=== PATIENT | female | born 2000 | race African-American/Black ===

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

== ENCOUNTER 2019-11-09 20:18 | Emergency (ER) | payer OTHER ==
[2019-11-09 20:24] VITALS: BP 116/63
--- NOTE | 2019-11-09 20:41 | ED Physician Documentation ---
PD HPI FEMALE - Stated complaint Stated Complaint: ABD PX,6WEEKS PREG - Chief complaint Chief Complaint: Abd Pain - History obtained from History obtained from: Patient - History of Present Illness Timing - onset: Other (This is a G1 at approximately 6 weeks gestation. She complains of 3 days of vaginal discharge compared to prior episode of bacterial vaginosis. She also has some left-sided abdominal cramping but she has had that throughout the . No bleeding.) Review of Systems Constitutional: reports: Reviewed and negative Cardiac: reports: Reviewed and negative Respiratory: reports: Dyspnea PD PAST MEDICAL HISTORY - Past Medical History Cardiovascular: None Respiratory: None Neuro: None Endocrine/Autoimmune: None GI: None MERCHANDISE DIRECTOR: None : None HEENT: None Psych: None Musculoskeletal: None Derm: None - Past Surgical History Past Surgical History: No - Present Medications Home Medications: Ambulatory Orders Medication Instructions Recorded Confirmed metroNIDAZOLE [Flagyl] 500 mg PO BID #14 tablet 11/09/19 - Allergies Allergies/Adverse Reactions: Allergies Allergy/AdvReac Type Severity Reaction Status Date / Time No Known Drug Allergies Allergy Verified 12/04/18 21:08 - Social History Does the pt smoke?: No Smoking Status: Never smoker Does the pt drink ETOH?: No Does the pt have substance abuse?: No - Immunizations Immunizations are current?: Yes - POLST Patient has POLST: No PD ED PE NORMAL - Vitals Vital signs reviewed: Yes - General General: Alert and oriented X 3, No acute distress - Abdomen Abdomen: Soft, Non tender - Female Female : Other (Bedside ultrasound demonstrates single live intrauterine with a heart rate of 128) - Neuro Neuro: Alert and oriented X 3, Normal speech Results - Vitals Vitals: Vital Signs - 24 hr 11/09/19 20:21 Temperature 36.8 C Heart Rate 78 Respiratory 18 Rate Blood Pressure 116/63 O2 Saturation 99 Oxygen O2 Source Room air - Labs Labs: Microbiology 11/09/19 20:40 Wet Prep - Final Genital - Vaginal PD MEDICAL DECISION MAKING - ED course ED course: 19-year-old woman with 6-week , G1. Sx C/W BV. Tx w flagyl Departure - Departure Disposition: 01 Home, Self Care Clinical Impression: Bacterial vaginosis Qualifiers: Weeks of gestation: less than 8 weeks Qualified Code(s): Z3A.01 - Less than 8 weeks gestation of Condition: Good Record reviewed to determine appropriate education?: Yes Instructions: ED Vaginosis Bacterial Prescriptions: metroNIDAZOLE [Flagyl] 500 mg PO BID #14 tablet Comments: [place], return for new or worsening symptoms. Discharge Date/Time: 11/09/19 21:14
[2019-11-09] MEDS ORDERED: metroNIDAZOLE 250 MG TABLET PO STA (21:04)
[2019-11-09 22:37] LABS: CANDIDA GROUP DNA POSITIVE (NEGATIVE); CANDIDA KRUSEI DNA NEGATIVE (NEGATIVE); TRICHOMONAS VAGINALIS DNA NEGATIVE (NEGATIVE)
[2019-11-09 23:25] LABS: TRICHOMONAS VAGINALIS DNA NEGATIVE (NEGATIVE)
== END 2019-11-09 21:14 | disposition home or self-care (01) ==
LOC: ED 20:18
DX: O23.591 Infection of other part of genital tract in pregnancy, first trimester (principal); B96.89 Other specified bacterial agents as the cause of diseases classified elsewhere; Z3A.01 Less than 8 weeks gestation of pregnancy
CPT/HCPCS: 87210; 87481; 87491; 87591; 87661; 87801; 99283; A9270

== ENCOUNTER 2020-04-01 19:06 | Outpatient (CLI) | payer OTHER | END 2020-04-01 19:07 | disposition critical access hospital (66) | LOC: EMS 19:06 | PROVIDERS: ATTEND Surgery | DX: O26.899 Other specified pregnancy related conditions, unspecified trimester (principal) | CPT/HCPCS: A0425; A0427 ==

== ENCOUNTER 2020-04-01 19:27 | Inpatient (IN) | payer OTHER ==
[~2020-04-01 19:27] MED LIST: HYDROmorphone 1 MG/ML CARPUJECT IVP ONE
[2020-04-01] MEDS ORDERED: BETAMETHASONE 30 MG/5 ML VIAL IM ONE (19:30)
[2020-04-01] MEDS: MAGNESIUM SULFATE 2 GRAM 2 GM/50 ML BAG IV SCH ×2 (19:35→20:13)
[2020-04-01] MEDS ORDERED: MAGNESIUM SULFATE 2 GRAM 4 GM/100 ML BAG IV ONE (19:38)
[2020-04-01] MEDS ORDERED: LACTATED RINGERS 1,000 ML IV ONE ×3 (19:38→21:40)
[2020-04-01] MEDS ORDERED: BETAMETHASONE 30 MG/5 ML VIAL ONE (19:44)
[2020-04-01] MEDS ORDERED: MAGNESIUM SULFATE 2 GRAM 2 GM/50 ML BAG IV ONE ×2 (19:45→20:14)
[2020-04-01] MEDS ORDERED: CARBOPROST TROMETHAMINE 250 MCG/ML AMP IM PRN (19:59)
[2020-04-01] MEDS ORDERED: miSOPROStoL 200 MCG TABLET BC PRN (19:59)
[2020-04-01] MEDS ORDERED: OXYTOCIN 10 UNIT/ML VIAL IM PRN (19:59)
[2020-04-01] MEDS ORDERED: SODIUM CHLORIDE FLUSH 0.9% 10 ML SYRINGE IVP PRN ×2 (19:59→21:41)
[2020-04-01] MEDS ORDERED: METHYLERGONOVINE 0.2 MG/ML VIAL IM PRN (19:59)
[2020-04-01] MEDS ORDERED: OXYTOCIN/SODIUM CHLORIDE 500 ML IV PRN ×2 (19:59)
[2020-04-01] MEDS ORDERED: LIDOCAINE-MPF 1% 30 ML VIAL ID PRN (19:59)
[2020-04-01] MEDS ORDERED: TRANEXAMIC ACID 1,000 MG in SODIUM CHLORIDE 0.9% 100ML 100 ML IV PRN (19:59)
[2020-04-01] MEDS ORDERED: LACTATED RINGERS 1,000 ML IV SCH ×2 (20:00→22:00)
[2020-04-01] MEDS ORDERED: CITRIC ACID/SODIUM CITRATE 15 ML UDC PO ONE ×2 (20:00→20:21)
[2020-04-01] MEDS ORDERED: OXYTOCIN/SODIUM CHLORIDE 500 ML IV ONE (20:01)
[2020-04-01 20:18] LABS: BASOPHILS % (AUTO) 0.3 %; EOSINOPHILS % (AUTO) 0.3 %; HGB - HEMOGLOBIN 8.6 g/dL (12.0-16.0); LYMPHOCYTES % (AUTO) 10.2 %; MEAN CORPUSCULAR HEMOGLOBIN 30.5 pg (27.0-31.0); MEAN CORPUSCULAR VOLUME 92.6 fL (81.0-99.0); MEAN PLATELET VOLUME 11.1 fL (7.9-10.8); MONOCYTES % (AUTO) 8.9 %; NEUTROPHILS % (AUTO) 76.8 %; PLT - PLATELET COUNT 286 10^3/uL (130-450); RED BLOOD COUNT 2.82 10^6/uL (4.20-5.40); RED CELL DISTRIBUTION WIDTH 14.5 % (12.0-15.0); WHITE BLOOD COUNT 20.1 x10^3/uL (4.8-10.8)
[2020-04-01 20:20] LABS: ABNORMAL LYMPHS % (MANUAL) 0 %
[2020-04-01] MEDS ORDERED: CLINDAMYCIN 900 MG/50 ML 50 ML IV ONE (20:24)
[2020-04-01] MEDS ORDERED: ONDANSETRON 4 MG/2 ML VIAL IVP ONE (20:25)
[2020-04-01] MEDS ORDERED: KETOROLAC 30 MG/ML VIAL IVP ONE (20:25)
[2020-04-01] MEDS ORDERED: METHYLERGONOVINE 0.2 MG/ML VIAL IM ONE (20:25)
[2020-04-01] MEDS ORDERED: HYDROmorphone 1 MG/ML CARPUJECT IVP ONE (20:25)
[2020-04-01] MEDS ORDERED: ACETAMINOPHEN 1,000 MG/100 ML 100 ML IV ONE (20:25)
[2020-04-01] MEDS ORDERED: fentaNYL 100 MCG/2 ML VIAL IVP ONE (20:25)
[2020-04-01] MEDS ORDERED: ePHEDrine 50 MG/ML VIAL IVP ONE (20:25)
[2020-04-01 20:27] LABS: ALBUMIN 3.4 g/dL (3.2-5.5); ALBUMIN/GLOBULIN RATIO 0.9 (1.0-2.2); BILIRUBIN,TOTAL 0.2 mg/dL (0.2-1.0); CALCIUM 9.5 mg/dL (8.5-10.3); CREATININE 0.6 mg/dL (0.4-1.0); TOTAL PROTEIN 7.3 g/dL (6.7-8.2)
[2020-04-01 20:32] LABS: BAND NEUTROPHILS % (MANUAL) 1 %; DIFFERENTIAL COMMENT MANUAL DIFFERENTIAL; LYMPHOCYTES # (MANUAL) 0.4 10^3/uL (1.5-3.5); LYMPHOCYTES % (MANUAL) 2 %; PLATELET ESTIMATE, MANUAL NORMAL (130-450,000) (NORMAL); PLATELET MORPHOLOGY NORMAL APPEARANCE (NORMAL); RBC MORPHOLOGY (MULTIPLE) NORMAL APPEARANCE (NORMAL)
[2020-04-01] MEDS ORDERED: METHYLERGONOVINE 0.2 MG/ML VIAL ONE (20:32)
[2020-04-01] MEDS ORDERED: CARBOPROST TROMETHAMINE 250 MCG/ML AMP IM ONE (20:32)
[2020-04-01] MEDS ORDERED: ONDANSETRON 4 MG/2 ML VIAL IVP PRN ×2 (21:41→21:59)
[2020-04-01] MEDS ORDERED: FERRIC GLUCONATE 125 MG in SODIUM CHLORIDE 0.9% 100ML 100 ML IV ONE (21:41)
[2020-04-01] MEDS ORDERED: HYDROmorphone PCA 20MG/100ML IV PRN (21:50)
--- NOTE | 2020-04-01 21:57 | ANESTHESIA POST OP EVALUATION ---
Anesthesia Post Eval - Post Anesthesia Eval Vitals: Last Vital Signs Temp 36.8 C 04/01/20 21:35 Pulse 112 H 04/01/20 21:49 Resp 12 04/01/20 21:49 BP 135/88 H 04/01/20 21:49 Pulse Ox 100 04/01/20 21:49 CV Function Including HR & BP: positive: Stable Pain Control: positive: Satisfactory Nausea & Vomiting: positive: Negative Mental Status: positive: Patient Participates Respiratory Status: Airway Patent Hydration Status: Satisfactory Anesthesia Complications: positive: None
--- NOTE | 2020-04-01 21:58 | CONSULTATION NOTE ---
Consultation Report: written consent not obtained for anesthesia, and preanesthesia eval not one due to urgency of case. Patient in room upon my arrival. Verbal consent for SAB given by patient.
[2020-04-01] MEDS ORDERED: MORPHINE 2 MG/ML CARPUJECT IVP PRN (21:59)
[2020-04-01] MEDS ORDERED: ePHEDrine 50 MG/ML VIAL IVP PRN (21:59)
[2020-04-01] MEDS ORDERED: METOCLOPRAMIDE 10 MG/2 ML VIAL IVP PRN (21:59)
[2020-04-01] MEDS ORDERED: fentaNYL 100 MCG/2 ML VIAL IVP PRN (21:59)
[2020-04-01] MEDS ORDERED: ATROPINE ABBOJECT 1 MG/10 ML SYRINGE IVP PRN (21:59)
[2020-04-01] MEDS ORDERED: HYDROmorphone 0.5 MG/0.5 ML SYRINGE IVP PRN (21:59)
[2020-04-01] MEDS ORDERED: NALOXONE 0.4 MG/ML VIAL IVP PRN (21:59)
--- NOTE | 2020-04-01 21:59 | OPERATIVE REPORT ---
Operative Report - General Admit Date: 04/01/20 Planned Procedure: EPLTC/S Pre-Op Diagnosis: 27 week, breech, houre glassing membrains, complete, iminant delivery Procedure Performed: EPLTC/S Post Op Diagnosis: Footling breech - Procedure Note Primary Surgeon: Dean Hollis MD Secondary Surgeon: Kirsten Abel Anesthesia Provider: Marilia Catalan CRNA Anesthesia Technique: Spinal Pathology: Placenta IV Fluids (mL): 1,300 Estimated Blood Loss (mL): 800 Urine Output (mL): 30 Indications: iminsnt delivery
[2020-04-01] MEDS: LACTATED RINGERS 1,000 ML IV SCH (23:00)
[2020-04-01] MEDS: oxyCODONE 5 MG TABLET PO PRN (23:16)
[2020-04-02] MEDS ORDERED: HYDROmorphone 2 MG/ML VIAL ONE (00:59)
[2020-04-02] MEDS ORDERED: SODIUM CHLORIDE FLUSH 0.9% 10 ML SYRINGE IVP SCH ×2 (01:00)
--- NOTE | 2020-04-02 02:04 | PREOP HISTORY & PHYSICAL ---
DATE OF SERVICE: 04/01/2020 Physician: Dean Hollis MD IDENTIFICATION: Patient is a 19-year-old 1, para 0, whose EDC was 29 June, by history given by patient. This makes her 27 weeks and 1 day. CHIEF COMPLAINT: Contractions. HISTORY OF PRESENT ILLNESS: Patient states that at roughly 1800 this evening, she developed contractions, which became progressively worse with time. She presented to our OB unit via ambulance at roughly 1930. At that point, a pelvic examination was performed and the membranes were hourglassing to within +1 of the cervix. The cervix was nonpalpable at that time. She had been recently discharged from the [facility] a week ago with a diagnosis of an incompetent cervix. She had been sent home after being monitored extensively. She received 2 shots of betamethasone during that time. She denies any precipitating causes. She denies any infections. PAST MEDICAL HISTORY: Positive for acid reflux. PAST SURGICAL HISTORY: Tonsils and adenoidectomy, back lipoma removed, wisdom teeth. ALLERGIES: PENICILLIN. CURRENT MEDICATIONS 1. Sertraline 50 mg daily. 2. Aspirin. 3. Famotidine. 4. Metoclopramide. 5. Propylene glycol. 6. Senna. HABITS: She denies the use of alcohol, tobacco, or street or addictive drugs. SOCIAL HISTORY: Patient is active [employer]. She is currently engaged to be . PHYSICAL EXAMINATION GENERAL: Patient is well-developed, well-nourished, black female. She is slight in appearance. VITAL SIGNS: On admission show a blood pressure of 135/88, respirations 12, heart rate is 112. HEENT: Pupils are equal and round. Extraocular muscles are intact. HEART: Regular rate and rhythm without murmurs. LUNGS: Lung joyner are clear without rales or wheezes. ABDOMEN: Palpated as appropriate size. A transabdominal ultrasound revealed the infant to be breech in presentation. There was adequate fluid around the infant at this time. PELVIC: Examination showed a bulging bag, which was hourglassing out to the +2. The cervix was not palpable, the presenting part appears to be the foot. Her DTRs were plus. IMPRESSION: A 19-year-old primigravida at 27 weeks 1 day, hourglassing membranes, active labor, footling breech. PLAN: We will start magnesium sulfate to try and stop her contractions. If this is not successful, because of the breech presentation, we will need to proceed on to section. At this particular time, I do not believe she is transportable. TD: 04/01/2020 22:15 MTDJayden
[2020-04-02] MEDS: KETOROLAC 30 MG/ML VIAL IVP SCH ×4 (02:52→21:22)
[2020-04-02] MEDS: ACETAMINOPHEN 500 MG TABLET PO SCH ×3 (04:20→20:41)
[2020-04-02 05:52] LABS: BASOPHILS % (AUTO) 0.4 %; EOSINOPHILS % (AUTO) 0.5 %; HGB - HEMOGLOBIN 7.5 g/dL (12.0-16.0); LYMPHOCYTES % (AUTO) 4.4 %; MEAN CORPUSCULAR HEMOGLOBIN 30.1 pg (27.0-31.0); MEAN CORPUSCULAR HGB CONC 32.1 g/dL (32.0-36.0); MEAN PLATELET VOLUME 11.2 fL (7.9-10.8); MONOCYTES % (AUTO) 6.2 %; NEUTROPHILS % (AUTO) 86.4 %; PLT - PLATELET COUNT 265 10^3/uL (130-450); RED BLOOD COUNT 2.49 10^6/uL (4.20-5.40); RED CELL DISTRIBUTION WIDTH 14.6 % (12.0-15.0); WHITE BLOOD COUNT 21.2 x10^3/uL (4.8-10.8)
[2020-04-02 05:54] LABS: ABNORMAL LYMPHS % (MANUAL) 0 %
--- NOTE | 2020-04-02 06:02 | OPERATIVE REPORT ---
DATE OF SERVICE: 04/01/2020 Physician: Dean Hollis MD PREOPERATIVE DIAGNOSES 1. 27 weeks 2 days. 2. Footling breech presentation. 3. Hourglassing membranes. 3. Active labor. 4. Imminent delivery. POSTOPERATIVE DIAGNOSES 1. 27 weeks 2 days. 2. Footling breech presentation. 3. Hourglassing membranes. 3. Active labor. 4. Imminent delivery. PROCEDURE PLANNED: Emergency primary low transverse section. PROCEDURE PERFORMED: Emergency primary low transverse section, footling breech. SURGEON: Dean Hollis MD. PROJECT MANAGEMENT INTERN: Tanya Pena CNM. ANESTHESIA: Spinal with IV augmentation, Kerry Catalan CRNA. IV FLUIDS: 1300 mL ESTIMATED BLOOD LOSS: 800 mL URINE OUTPUT: 300 mL MATERIALS TO PATHOLOGY: Placenta. FINDINGS: Live female , footling breech presentation, clear amniotic fluid. PROCEDURE: Following adequate spinal anesthesia, patient was placed in the supine position with a roll under the right hip. Pereira catheter was then placed under sterile conditions and her abdomen was prepped and draped in the usual fashion. Following a timeout, the procedure was commenced. A Pfannenstiel incision was carried down through subcutaneous tissue to the fascia. The fascia was incised transversely; then using both blunt and sharp dissection, it was freed from the rectus abdominis and pyramidalis. The rectus was split along the midline high. Care was taken to avoid any injury to bowel or bladder. At this point, the incision was carried superiorly and inferiorly. Bladder retractor was placed and then a bladder flap was developed using both blunt and sharp dissection. A low transverse uterine incision was made. This appeared to be somewhat higher in the muscular than initially attended. This was carried down to the amniotic membranes. The membranes were ruptured. Clear amniotic fluid was encountered. The 's right foot was brought down to the incision. Initially the hand also presented itself. This had to be pushed back and the left foot was eventually obtained. The infant was coming out abdomen first, so this had to be rolled to back first. The arms were swept, and then the head was delivered following pressure as well as a chin lift. The cord was doubly clamped, divided, and the infant was handed to the copy and print associate who was standing by. The infant was vigorous. A cord blood sample was obtained and sent for evaluation. At this point, the placenta was manually removed. This was sent for pathologic evaluation. The uterus was exteriorized, wrapped in a moist lap and cleansed in the internal portion with a dry lap. There was no evidence of retained membranes or placental tissue. The incision was closed utilizing 0 Vicryl in a running locking suture with an imbricating layer of 0 Vicryl. The incision appeared to be hemostatic at this point. The uterus was tipped forward and the cul-de-sac was irrigated clear of any clot. There was copious amounts of amniotic fluid encountered during the case. The estimated blood loss was roughly 800 mL. The uterus was tipped back in the abdominal cavity. The gutters were likewise irrigated clear of clot. The incision itself was once again inspected. No bleeding was noted. The peritoneum was closed as well as the rectus. This was irrigated. No bleeding was noted, so the fascia was closed utilizing looped PDS in a running suture. The incision itself was closed using 4-0 Monocryl and then Mastisol and Steri-Strips were applied. The uterus was expressed of all clots. During this procedure, Tanya Pena's assistance was necessary as well as important. She aided in retraction as well as delivering of the . TD: 04/01/2020 22:10 CHLOE
[2020-04-02 06:15] LABS: BAND NEUTROPHILS % (MANUAL) 31 %; DIFFERENTIAL COMMENT MANUAL DIFFERENTIAL; LYMPHOCYTES # (MANUAL) 0.6 10^3/uL (1.5-3.5); LYMPHOCYTES % (MANUAL) 3 %; MONOCYTES # (MANUAL) 0.6 10^3/uL (0.0-1.0); PLATELET ESTIMATE, MANUAL NORMAL (130-450,000) (NORMAL); RBC MORPHOLOGY (MULTIPLE) NORMAL APPEARANCE (NORMAL)
[2020-04-02] MEDS: oxyCODONE 5 MG TABLET PO PRN ×4 (06:17→21:11)
[2020-04-02] MEDS: SIMETHICONE CHEW 80 MG TABLET PO SCH ×2 (06:17→16:48)
[2020-04-02] MEDS ORDERED: FERRIC GLUCONATE 125 MG in SODIUM CHLORIDE 0.9% 100ML 100 ML IV ONE (09:00)
[2020-04-02] MEDS: ceFAZolin 2 GM in SODIUM CHLORIDE 0.9% 100ML 100 ML IV SCH ×2 (09:22→17:13)
[2020-04-02] MEDS ORDERED: IRON DEXTRAN 1,000 MG in SODIUM CHLORIDE 0.9% 250 ML IV ONE (10:30)
[2020-04-02 12:39] LABS: BASOPHILS % (AUTO) 0.5 %; HGB - HEMOGLOBIN 7.3 g/dL (12.0-16.0); LYMPHOCYTES % (AUTO) 3.9 %; MEAN CORPUSCULAR HEMOGLOBIN 30.5 pg (27.0-31.0); MEAN CORPUSCULAR HGB CONC 32.7 g/dL (32.0-36.0); MEAN CORPUSCULAR VOLUME 93.3 fL (81.0-99.0); MONOCYTES % (AUTO) 7.3 %; NEUTROPHILS % (AUTO) 85.5 %; PLT - PLATELET COUNT 269 10^3/uL (130-450); RED BLOOD COUNT 2.39 10^6/uL (4.20-5.40); RED CELL DISTRIBUTION WIDTH 14.6 % (12.0-15.0); WHITE BLOOD COUNT 22.3 x10^3/uL (4.8-10.8)
[2020-04-02 12:42] LABS: ABNORMAL LYMPHS % (MANUAL) 0 %
[2020-04-02 13:05] LABS: BAND NEUTROPHILS % (MANUAL) 1 %; LYMPHOCYTES # (MANUAL) 0.4 10^3/uL (1.5-3.5); LYMPHOCYTES % (MANUAL) 2 %; MONOCYTES # (MANUAL) 0.4 10^3/uL (0.0-1.0); PLATELET ESTIMATE, MANUAL NORMAL (130-450,000) (NORMAL); PLATELET MORPHOLOGY NORMAL APPEARANCE (NORMAL); RBC MORPHOLOGY (MULTIPLE) NORMAL APPEARANCE (NORMAL)
[2020-04-02 13:06] LABS: DIFFERENTIAL COMMENT MANUAL DIFFERENTIAL
--- NOTE | 2020-04-02 17:32 | PROVIDER PROGRESS NOTE ---
Subjective - General Admit Date: 04/01/20 Procedure Date: 04/01/20 Post Op Days: 1 Procedure Performed: EPLTC/S - Review of Systems Wound/Incisions: positive: Drainage (drainage on the dressing) General: positive: No symptoms (pain control issue. no flatus.) Objective - Patient Data Reviewed Vital Signs: Yes Vital Signs: Vital Signs x48h Temp Pulse Resp BP Pulse Ox 04/02/20 17:17 18 04/02/20 16:57 36.6 C 87 18 104/55 L 99 04/02/20 12:00 36.7 C 97 18 95/55 L 99 04/02/20 10:00 110/61 Weight: Weight 03/31/20 04/01/20 04/02/20 23:59 23:59 23:59 Weight (kg) 69.4 kg Intake & Output: Intake and Output Totals x24h 03/31/20 04/01/20 04/02/20 23:59 23:59 23:59 Intake Total 12.5 100 Output Total 2520 Balance 12.5 -2420 - Lab Results Lab Results: 04/02/20 12:30 04/01/20 20:08 Other Lab Results: Lab Results x24hrs 04/02/20 04/02/20 04/01/20 Range/Units 12:30 05:45 22:02 WBC 22.3 H 21.2 H (4.8-10.8) x10^3/uL RBC 2.39 L 2.49 L (4.20-5.40) 10^6/uL Hgb 7.3 L 7.5 L (12.0-16.0) g/dL Hct 22.3 L 23.4 L (37.0-47.0) % MCV 93.3 94.0 (81.0-99.0) fL MCH 30.5 30.1 (27.0-31.0) pg MCHC 32.7 32.1 (32.0-36.0) g/dL RDW 14.6 14.6 (12.0-15.0) % Plt Count 269 265 (130-450) 10^3/uL MPV 11.0 H 11.2 H (7.9-10.8) fL Neut # (Auto) Not Reportable Not Reportable Lymph # (Auto) Not Reportable Not Reportable [place] # (Auto) Not Reportable Not Reportable Eos # (Auto) Not Reportable Not Reportable Baso # (Auto) Not Reportable Not Reportable Absolute Nucleated RBC Not Reportable Not Reportable Total Counted 100 100 Band Neuts % (Manual) 1 31 H (0 - 10) % Abnorm Lymph % (Manual) 0 0 % Nucleated RBC % Not Reportable Not Reportable Neutrophils # (Manual) 21.4 H 19.9 H (1.5-6.6) 10^3/uL Lymphocytes # (Manual) 0.4 L 0.6 L (1.5-3.5) 10^3/uL Monocytes # (Manual) 0.4 0.6 (0.0-1.0) 10^3/uL Eosinophils # (Manual) 0.0 0.0 (0-0.7) 10^3/uL Basophils # (Manual) 0.0 0.0 (0-0.1) 10^3/uL Differential Comment MANUAL DIFFERENTIAL MANUAL DIFFERENTIAL Manual Slide Review Indicated WBC Morphology NORMAL APPEARANCE (NORMAL) Platelet Estimate NORMAL (130-450,000) NORMAL (130-450,000) (NORMAL) Platelet Morphology NORMAL APPEARANCE (NORMAL) RBC Morph Micro Appear NORMAL APPEARANCE NORMAL APPEARANCE (NORMAL) Sodium (135-145) mmol/L Potassium (3.5-5.0) mmol/L Chloride (101-111) mmol/L Carbon Dioxide (21-32) mmol/L Anion Gap (6-13) BUN (6-20) mg/dL Creatinine (0.4-1.0) mg/dL Estimated GFR (MDRD) (>89) Glucose (70-100) mg/dL Calcium (8.5-10.3) mg/dL Total Bilirubin (0.2-1.0) mg/dL AST (10-42) IU/L ALT (10-60) IU/L Alkaline Phosphatase (42-121) IU/L Total Protein (6.7-8.2) g/dL Albumin (3.2-5.5) g/dL Globulin (2.1-4.2) g/dL Albumin/Globulin Ratio (1.0-2.2) Blood Type Blood Type Recheck O POSITIVE Antibody Screen Crossmatch IS Only 04/01/20 04/01/20 04/01/20 Range/Units 20:08 20:08 20:08 WBC 20.1 H (4.8-10.8) x10^3/uL RBC 2.82 L (4.20-5.40) 10^6/uL Hgb 8.6 L (12.0-16.0) g/dL Hct 26.1 L (37.0-47.0) % MCV 92.6 (81.0-99.0) fL MCH 30.5 (27.0-31.0) pg MCHC 33.0 (32.0-36.0) g/dL RDW 14.5 (12.0-15.0) % Plt Count 286 (130-450) 10^3/uL MPV 11.1 H (7.9-10.8) fL Neut # (Auto) Not Reportable Lymph # (Auto) Not Reportable [place] # (Auto) Not Reportable Eos # (Auto) Not Reportable Baso # (Auto) Not Reportable Absolute Nucleated RBC Not Reportable Total Counted 100 Band Neuts % (Manual) 1 (0 - 10) % Abnorm Lymph % (Manual) 0 % Nucleated RBC % Not Reportable Neutrophils # (Manual) 17.7 H (1.5-6.6) 10^3/uL Lymphocytes # (Manual) 0.4 L (1.5-3.5) 10^3/uL Monocytes # (Manual) 2.0 H (0.0-1.0) 10^3/uL Eosinophils # (Manual) 0.0 (0-0.7) 10^3/uL Basophils # (Manual) 0.0 (0-0.1) 10^3/uL Differential Comment MANUAL DIFFERENTIAL Manual Slide Review Indicated WBC Morphology NORMAL APPEARANCE (NORMAL) Platelet Estimate NORMAL (130-450,000) (NORMAL) Platelet Morphology NORMAL APPEARANCE (NORMAL) RBC Morph Micro Appear NORMAL APPEARANCE (NORMAL) Sodium 133 L (135-145) mmol/L Potassium 3.5 (3.5-5.0) mmol/L Chloride 100 L (101-111) mmol/L Carbon Dioxide 23 (21-32) mmol/L Anion Gap 10.0 (6-13) BUN 6 (6-20) mg/dL Creatinine 0.6 (0.4-1.0) mg/dL Estimated GFR (MDRD) 154 (>89) Glucose 94 (70-100) mg/dL Calcium 9.5 (8.5-10.3) mg/dL Total Bilirubin 0.2 (0.2-1.0) mg/dL AST 16 (10-42) IU/L ALT 14 (10-60) IU/L Alkaline Phosphatase 85 (42-121) IU/L Total Protein 7.3 (6.7-8.2) g/dL Albumin 3.4 (3.2-5.5) g/dL Globulin 3.9 (2.1-4.2) g/dL Albumin/Globulin Ratio 0.9 L (1.0-2.2) Blood Type O POSITIVE Blood Type Recheck Antibody Screen NEGATIVE Crossmatch IS Only See Detail - Current Medications Current Medications: Current Medications Generic Name Dose Route Start Last Admin Trade Name Freq PRN Reason Stop Dose Admin Acetaminophen 1,000 mg 04/01/20 22:00 04/02/20 12:38 Tylenol PO 1,000 mg Q8H ARLETTE Administration Hydromorphone HCl 0 mg 04/01/20 21:50 04/02/20 00:59 Dilaudid Esl Instructor 20mg/100ml IV 0.1 mg PRN PRN Administration Abdominal Pain Protocol Lactated Ringer's 1,000 mls @ 100 mls/hr 04/01/20 22:00 04/01/20 23:00 Lr IV 100 mls/hr .Q10H ARLETTE Administration Cefazolin Sodium 2 gm/ Sodium 100 mls @ 200 mls/hr 04/02/20 10:00 04/02/20 17:13 Chloride IV 200 mls/hr Q8H ARLETTE Administration Ondansetron HCl 4 mg 04/01/20 21:41 04/02/20 02:52 Zofran Inj IVP 4 mg Q4H PRN Administration Nausea / Vomiting Oxycodone HCl 10 mg 04/01/20 23:06 04/02/20 16:48 Roxicodone PO 10 mg Q4HR PRN Administration PAIN Oxycodone HCl 5 mg 04/01/20 23:07 04/02/20 10:44 Roxicodone PO 5 mg Q4HR PRN Administration PAIN Simethicone 80 mg 04/01/20 22:00 04/02/20 16:48 Mylicon PO 80 mg TID ARLETTE Administration - Physical Exam Wound/Incisions: positive: Drainage General Appearance: positive: No acute distress, Alert Respiratory: positive: Chest non-tender, No respiratory distress, Breath sounds nml. negative: Wheezes Cardiovascular: positive: Regular rate & rhythm, No murmur, No gallop Abdomen: positive: Nml bowel sounds, Mass (U-3) Extremities: negative: Calf tenderness, David's sign/cords Impression/Plan - Problem List Problem List: POD #1 WBC 20K HcT 7.8 Pain control issues. Start Ancef 2 gms Q 8 IV Iron. CBC at noon
[2020-04-02] MEDS: DOCUSATE SODIUM 100 MG CAPSULE PO SCH (21:12)
[2020-04-02] MEDS ORDERED: KETOROLAC 30 MG/ML VIAL IVP SCH (22:00)
[2020-04-03] MEDS: oxyCODONE 5 MG TABLET PO PRN ×6 (01:08→23:52)
[2020-04-03] MEDS: IBUPROFEN 600 MG TABLET PO SCH ×4 (03:35→21:14)
[2020-04-03] MEDS: ACETAMINOPHEN 500 MG TABLET PO SCH ×3 (04:31→20:18)
[2020-04-03] MEDS: LORATADINE 10 MG TABLET PO SCH (04:32)
[2020-04-03 05:48] LABS: BASOPHILS % (AUTO) 0.3 %; LYMPHOCYTES % (AUTO) 6.7 %; MEAN CORPUSCULAR HEMOGLOBIN 30.9 pg (27.0-31.0); MEAN CORPUSCULAR HGB CONC 32.5 g/dL (32.0-36.0); MEAN CORPUSCULAR VOLUME 95.1 fL (81.0-99.0); MEAN PLATELET VOLUME 11.5 fL (7.9-10.8); MONOCYTES % (AUTO) 8.7 %; NEUTROPHILS % (AUTO) 79.9 %; PLT - PLATELET COUNT 268 10^3/uL (130-450); RED BLOOD COUNT 2.23 10^6/uL (4.20-5.40); RED CELL DISTRIBUTION WIDTH 15.1 % (12.0-15.0); WHITE BLOOD COUNT 22.1 x10^3/uL (4.8-10.8)
[2020-04-03] MEDS: diphenhydrAMINE 25 MG CAPSULE PO PRN ×3 (05:49→19:55)
[2020-04-03 05:58] LABS: HGB - HEMOGLOBIN 6.9 g/dL (12.0-16.0)
[2020-04-03 05:59] LABS: ABNORMAL LYMPHS % (MANUAL) 0 %
[2020-04-03 06:19] LABS: BAND NEUTROPHILS % (MANUAL) 2 %; LYMPHOCYTES # (MANUAL) 2.7 10^3/uL (1.5-3.5); LYMPHOCYTES % (MANUAL) 12 %; MONOCYTES # (MANUAL) 1.3 10^3/uL (0.0-1.0); MYELOCYTES % (MANUAL) 2 %
[2020-04-03 06:20] LABS: DIFFERENTIAL COMMENT MANUAL DIFFERENTIAL; PLATELET ESTIMATE, MANUAL NORMAL (130-450,000) (NORMAL); PLATELET MORPHOLOGY NORMAL APPEARANCE (NORMAL); RBC MORPHOLOGY (MULTIPLE) 2+ HYPOCHROMASIA (NORMAL)
--- NOTE | 2020-04-03 07:58 | PROVIDER PROGRESS NOTE ---
Subjective - General Admit Date: 04/01/20 Procedure Date: 04/01/20 Post Op Days: 2 Procedure Performed: EPLTC/S - Review of Systems Wound/Incisions: positive: Healing well, Drainage General: positive: No symptoms (light headed when up. pain controled.) Gastrointestinal: positive: Flatus Genitourinary: positive: No symptoms Objective - Patient Data Reviewed Vital Signs: Yes Vital Signs: Vital Signs x48h Temp Pulse Resp BP Pulse Ox 04/03/20 03:45 36.8 C 103 H 18 123/69 100 04/03/20 00:40 36.9 C 100 18 110/58 L 100 Weight: Weight 04/01/20 04/02/20 04/03/20 23:59 23:59 23:59 Weight (kg) 69.4 kg Intake & Output: Intake and Output Totals x24h 04/01/20 04/02/20 04/03/20 23:59 23:59 23:59 Intake Total 12.5 1320 600 Output Total 3145 Balance 12.5 -1825 600 - Lab Results Lab Results: 04/03/20 05:34 04/01/20 20:08 Other Lab Results: Lab Results x24hrs 04/03/20 04/02/20 04/01/20 Range/Units 05:34 12:30 23:58 WBC 22.1 H 22.3 H (4.8-10.8) x10^3/uL RBC 2.23 L 2.39 L (4.20-5.40) 10^6/uL Hgb 6.9 L* 7.3 L (12.0-16.0) g/dL Hct 21.2 L 22.3 L (37.0-47.0) % MCV 95.1 93.3 (81.0-99.0) fL MCH 30.9 30.5 (27.0-31.0) pg MCHC 32.5 32.7 (32.0-36.0) g/dL RDW 15.1 H 14.6 (12.0-15.0) % Plt Count 268 269 (130-450) 10^3/uL MPV 11.5 H 11.0 H (7.9-10.8) fL Neut # (Auto) Not Reportable Not Reportable Lymph # (Auto) Not Reportable Not Reportable [place] # (Auto) Not Reportable Not Reportable Eos # (Auto) Not Reportable Not Reportable Baso # (Auto) Not Reportable Not Reportable Absolute Nucleated RBC Not Reportable Not Reportable Total Counted 100 100 Band Neuts % (Manual) 2 1 (0 - 10) % Abnorm Lymph % (Manual) 0 0 % Myelocytes % 2 H ( - 0) % Nucleated RBC % Not Reportable Not Reportable Neutrophils # (Manual) 17.7 H 21.4 H (1.5-6.6) 10^3/uL Lymphocytes # (Manual) 2.7 0.4 L (1.5-3.5) 10^3/uL Monocytes # (Manual) 1.3 H 0.4 (0.0-1.0) 10^3/uL Eosinophils # (Manual) 0.0 0.0 (0-0.7) 10^3/uL Basophils # (Manual) 0.0 0.0 (0-0.1) 10^3/uL Differential Comment MANUAL DIFFERENTIAL MANUAL DIFFERENTIAL Manual Slide Review Indicated WBC Morphology NORMAL APPEARANCE NORMAL APPEARANCE (NORMAL) Platelet Estimate NORMAL (130-450,000) NORMAL (130-450,000) (NORMAL) Platelet Morphology NORMAL APPEARANCE NORMAL APPEARANCE (NORMAL) RBC Morph Micro Appear 2+ HYPOCHROMASIA NORMAL APPEARANCE (NORMAL) Blood Type O POSITIVE Antibody Screen NEGATIVE Crossmatch IS Only See Detail - Current Medications Current Medications: Current Medications Generic Name Dose Route Start Last Admin Trade Name Freq PRN Reason Stop Dose Admin Acetaminophen 1,000 mg 04/01/20 22:00 04/03/20 04:31 Tylenol PO 1,000 mg Q8H ARLETTE Administration Diphenhydramine HCl 25 mg 04/01/20 21:41 04/03/20 05:49 Benadryl PO 25 mg Q6H PRN Administration ITCHING Docusate Sodium 100 mg 04/02/20 09:00 04/02/20 21:12 Colace 100mg Capsule PO 100 mg BID ARLETTE Administration Hydromorphone HCl 0 mg 04/01/20 21:50 04/02/20 00:59 Dilaudid Decal Cutter 20mg/100ml IV 0.1 mg PRN PRN Administration Abdominal Pain Protocol Lactated Ringer's 1,000 mls @ 100 mls/hr 04/01/20 22:00 04/02/20 18:15 Lr IV Infused .Q10H ARLETTE Infusion Cefazolin Sodium 2 gm/ Sodium 100 mls @ 200 mls/hr 04/02/20 10:00 04/02/20 18:00 Chloride IV Infused Q8H ARLETTE Infusion Ibuprofen 600 mg 04/02/20 22:00 04/03/20 03:35 Motrin PO 600 mg Q6H ARLETTE Administration Loratadine 10 mg 04/03/20 05:00 04/03/20 04:32 Claritin PO 10 mg DAILY ARLETTE Administration Ondansetron HCl 4 mg 04/01/20 21:41 04/02/20 02:52 Zofran Inj IVP 4 mg Q4H PRN Administration Nausea / Vomiting Oxycodone HCl 10 mg 04/01/20 23:06 04/03/20 01:08 Roxicodone PO 10 mg Q4HR PRN Administration PAIN Oxycodone HCl 5 mg 04/01/20 23:07 04/03/20 05:15 Roxicodone PO 5 mg Q4HR PRN Administration PAIN Simethicone 80 mg 04/01/20 22:00 04/02/20 16:48 Mylicon PO 80 mg TID ARLETTE Administration Sodium Chloride 10 ml 04/01/20 19:59 04/03/20 05:19 Normal Saline Flush 0.9% IVP 10 ml PRN PRN Administration NEEDED PER PROVIDER ORDERS - Physical Exam Wound/Incisions: positive: Healing well General Appearance: positive: No acute distress Respiratory: positive: Chest non-tender, No respiratory distress, Breath sounds nml Cardiovascular: positive: Regular rate & rhythm, No murmur, No gallop Abdomen: positive: Mass (uterus is tender more than expected) Extremities: negative: Calf tenderness, David's sign/cords Impression/Plan - Problem List Problem List: POD #2 uterus is still photographer, white count elevated to 20k 24 hours of ancef. consider change of antibiotics Anemia. 6.9. Trans fuse [address] Cox who will take care of in my absence.
--- NOTE | 2020-04-03 07:59 | PROVIDER PROGRESS NOTE ---
Subjective - Prog Note Date Prog Note Date: 04/03/20 Prog Note Time: 07:59 - Subjective Subjective: Changed abx regimen for endometritis to clindamycin 900 mg IV Q8H and gentamicin 5/mg/kg IV Q24 hours. Objective - Vital Signs/Intake & Output Vital Signs: Vital Signs x48h Temp Pulse Resp BP Pulse Ox 04/03/20 03:45 98.2 F 103 H 18 123/69 100 04/03/20 00:40 98.4 F 100 18 110/58 L 100 Intake & Output: Intake & Output 03/31/20 04/01/20 04/02/20 04/03/20 23:59 23:59 23:59 23:59 Intake Total 12.5 1320 600 Output Total 3145 Balance 12.5 -1825 600 - Lab Results Fish Bones: 04/03/20 05:34 04/01/20 20:08 Other Labs: Lab Results x24hrs 04/03/20 04/02/20 04/01/20 Range/Units 05:34 12:30 23:58 WBC 22.1 H 22.3 H (4.8-10.8) x10^3/uL RBC 2.23 L 2.39 L (4.20-5.40) 10^6/uL Hgb 6.9 L* 7.3 L (12.0-16.0) g/dL Hct 21.2 L 22.3 L (37.0-47.0) % MCV 95.1 93.3 (81.0-99.0) fL MCH 30.9 30.5 (27.0-31.0) pg MCHC 32.5 32.7 (32.0-36.0) g/dL RDW 15.1 H 14.6 (12.0-15.0) % Plt Count 268 269 (130-450) 10^3/uL MPV 11.5 H 11.0 H (7.9-10.8) fL Neut # (Auto) Not Reportable Not Reportable Lymph # (Auto) Not Reportable Not Reportable [place] # (Auto) Not Reportable Not Reportable Eos # (Auto) Not Reportable Not Reportable Baso # (Auto) Not Reportable Not Reportable Absolute Nucleated RBC Not Reportable Not Reportable Total Counted 100 100 Band Neuts % (Manual) 2 1 (0 - 10) % Abnorm Lymph % (Manual) 0 0 % Myelocytes % 2 H ( - 0) % Nucleated RBC % Not Reportable Not Reportable Neutrophils # (Manual) 17.7 H 21.4 H (1.5-6.6) 10^3/uL Lymphocytes # (Manual) 2.7 0.4 L (1.5-3.5) 10^3/uL Monocytes # (Manual) 1.3 H 0.4 (0.0-1.0) 10^3/uL Eosinophils # (Manual) 0.0 0.0 (0-0.7) 10^3/uL Basophils # (Manual) 0.0 0.0 (0-0.1) 10^3/uL Differential Comment MANUAL DIFFERENTIAL MANUAL DIFFERENTIAL Manual Slide Review Indicated WBC Morphology NORMAL APPEARANCE NORMAL APPEARANCE (NORMAL) Platelet Estimate NORMAL (130-450,000) NORMAL (130-450,000) (NORMAL) Platelet Morphology NORMAL APPEARANCE NORMAL APPEARANCE (NORMAL) RBC Morph Micro Appear 2+ HYPOCHROMASIA NORMAL APPEARANCE (NORMAL) Blood Type O POSITIVE Antibody Screen NEGATIVE Crossmatch IS Only See Detail
[2020-04-03] MEDS: SERTRALINE 50 MG TABLET PO SCH (08:15)
[2020-04-03] MEDS: CLINDAMYCIN 900 MG/50 ML 50 ML IV SCH ×3 (08:15→23:41)
[2020-04-03] MEDS: DOCUSATE SODIUM 100 MG CAPSULE PO SCH ×2 (08:15→21:13)
[2020-04-03] MEDS: LACTATED RINGERS 1,000 ML IV SCH (08:16)
[2020-04-03] MEDS: SODIUM CHLORIDE 0.9% IV SCH (09:18)
[2020-04-03] MEDS: GENTAMICIN IV SCH (09:18)
[2020-04-03 19:27] LABS: BASOPHILS % (AUTO) 0.3 %; EOSINOPHILS % (AUTO) 0.3 %; HGB - HEMOGLOBIN 9.4 g/dL (12.0-16.0); LYMPHOCYTES % (AUTO) 8.3 %; MEAN CORPUSCULAR HEMOGLOBIN 30.5 pg (27.0-31.0); MEAN CORPUSCULAR HGB CONC 32.8 g/dL (32.0-36.0); MEAN CORPUSCULAR VOLUME 93.2 fL (81.0-99.0); MONOCYTES % (AUTO) 6.7 %; PLT - PLATELET COUNT 266 10^3/uL (130-450); RED BLOOD COUNT 3.08 10^6/uL (4.20-5.40); RED CELL DISTRIBUTION WIDTH 14.8 % (12.0-15.0); WHITE BLOOD COUNT 21.3 x10^3/uL (4.8-10.8)
[2020-04-03 19:48] LABS: ABNORMAL LYMPHS % (MANUAL) 0 %
--- NOTE | 2020-04-03 19:53 | PROVIDER PROGRESS NOTE ---
Subjective - Prog Note Date Prog Note Date: 04/03/20 Prog Note Time: 19:51 - Subjective Subjective: Patient has had 2 units of blood. Post transfusion HCT pending. Patient feels better, headache gone. Has been up and ambualting, toelrating po. Pain is well managed. She is voiding. Objective - Vital Signs/Intake & Output Vital Signs: Vital Signs x48h Temp Pulse Resp BP 04/03/20 15:39 99.3 F 92 17 110/59 L 04/03/20 14:23 99.0 F 103 H 18 101/61 04/03/20 13:55 98.8 F 105 H 18 110/64 04/03/20 12:45 98.8 F 106 H 18 110/62 04/03/20 12:29 98.4 F 119 H 18 112/62 Intake & Output: Intake & Output 03/31/20 04/01/20 04/02/20 04/03/20 23:59 23:59 23:59 23:59 Intake Total 12.5 1590 1340.675 Output Total 3145 Balance 12.5 -1555 1340.675 - Objective General Appearance: positive: No acute distress Respiratory: positive: No respiratory distress Cardiovascular: positive: Regular rate & rhythm Abdomen: positive: Other (Soft, ff below umbi, mild TTP) Skin: positive: Color nml, Warm Extremities: positive: Non-tender, No pedal edema Neurologic/Psychiatric: positive: Oriented x3 - Lab Results Fish Bones: 04/03/20 19:20 04/01/20 20:08 Other Labs: Lab Results x24hrs 04/03/20 04/03/20 04/01/20 Range/Units 19:20 05:34 23:58 WBC 21.3 H 22.1 H (4.8-10.8) x10^3/uL RBC 3.08 L 2.23 L (4.20-5.40) 10^6/uL Hgb 9.4 L 6.9 L* (12.0-16.0) g/dL Hct 28.7 L 21.2 L (37.0-47.0) % MCV 93.2 95.1 (81.0-99.0) fL MCH 30.5 30.9 (27.0-31.0) pg MCHC 32.8 32.5 (32.0-36.0) g/dL RDW 14.8 15.1 H (12.0-15.0) % Plt Count 266 268 (130-450) 10^3/uL MPV 11.0 H 11.5 H (7.9-10.8) fL Neut # (Auto) Not Reportable Lymph # (Auto) Not Reportable [place] # (Auto) Not Reportable Eos # (Auto) Not Reportable Baso # (Auto) Not Reportable Absolute Nucleated RBC Not Reportable Total Counted 100 Band Neuts % (Manual) 2 (0 - 10) % Abnorm Lymph % (Manual) 0 % Myelocytes % 2 H ( - 0) % Nucleated RBC % Not Reportable Neutrophils # (Manual) 17.7 H (1.5-6.6) 10^3/uL Lymphocytes # (Manual) 2.7 (1.5-3.5) 10^3/uL Monocytes # (Manual) 1.3 H (0.0-1.0) 10^3/uL Eosinophils # (Manual) 0.0 (0-0.7) 10^3/uL Basophils # (Manual) 0.0 (0-0.1) 10^3/uL Differential Comment MANUAL DIFFERENTIAL Manual Slide Review Indicated WBC Morphology NORMAL APPEARANCE (NORMAL) Platelet Estimate NORMAL (130-450,000) (NORMAL) Platelet Morphology NORMAL APPEARANCE (NORMAL) RBC Morph Micro Appear 2+ HYPOCHROMASIA (NORMAL) Blood Type O POSITIVE Antibody Screen NEGATIVE Crossmatch IS Only See Detail Assessment/Plan - Problem List (1) S/P Impression: POD#2: Reviewed possibility of pm discharge pending drop in WBC and appropriate rise in HCT Has been afebrile for 24 hours Agrees to stay overnight and will discharge after am dose of gentamicin. DC meds sent to [facility]
[2020-04-03 21:25] LABS: BAND NEUTROPHILS % (MANUAL) 4 %; EOSINOPHILS # (MANUAL) 0.2 10^3/uL (0-0.7); LYMPHOCYTES # (MANUAL) 1.7 10^3/uL (1.5-3.5); LYMPHOCYTES % (MANUAL) 8 %; METAMYELOCYTES % (MANUAL) 2 %; MONOCYTES # (MANUAL) 1.3 10^3/uL (0.0-1.0)
[2020-04-03 21:27] LABS: DIFFERENTIAL COMMENT MANUAL DIFFERENTIAL; PLATELET ESTIMATE, MANUAL NORMAL (130-450,000) (NORMAL); PLATELET MORPHOLOGY NORMAL APPEARANCE (NORMAL)
[2020-04-04] MEDS: IBUPROFEN 600 MG TABLET PO SCH ×2 (03:16→09:18)
[2020-04-04] MEDS: ACETAMINOPHEN 500 MG TABLET PO SCH ×2 (04:17→10:41)
[2020-04-04] MEDS: oxyCODONE 5 MG TABLET PO PRN ×2 (04:18→08:19)
[2020-04-04] MEDS: LORATADINE 10 MG TABLET PO SCH (08:19)
[2020-04-04] MEDS: SIMETHICONE CHEW 80 MG TABLET PO SCH (08:19)
[2020-04-04] MEDS: SERTRALINE 50 MG TABLET PO SCH (08:19)
[2020-04-04] MEDS: DOCUSATE SODIUM 100 MG CAPSULE PO SCH (08:20)
[2020-04-04] MEDS: CLINDAMYCIN 900 MG/50 ML 50 ML IV SCH (08:20)
[2020-04-04 08:23] VITALS: BP 126/74
[2020-04-04 08:24] LABS: BASOPHILS % (AUTO) 0.5 %; EOSINOPHILS % (AUTO) 0.9 %; HGB - HEMOGLOBIN 9.2 g/dL (12.0-16.0); MEAN CORPUSCULAR HGB CONC 31.9 g/dL (32.0-36.0); MEAN CORPUSCULAR VOLUME 93.8 fL (81.0-99.0); MEAN PLATELET VOLUME 11.5 fL (7.9-10.8); MONOCYTES % (AUTO) 6.4 %; NEUTROPHILS % (AUTO) 75.5 %; PLT - PLATELET COUNT 279 10^3/uL (130-450); RED BLOOD COUNT 3.07 10^6/uL (4.20-5.40); RED CELL DISTRIBUTION WIDTH 15.2 % (12.0-15.0); WHITE BLOOD COUNT 20.9 x10^3/uL (4.8-10.8)
[2020-04-04 08:40] LABS: ABNORMAL LYMPHS % (MANUAL) 0 %
--- NOTE | 2020-04-04 09:11 | Discharge Plan ---
Discharge Plan Problem Reviewed?: Yes Disposition: Home, Self Care Condition: Good Prescriptions: Docusate Sodium 100 - 200 mg PO BID PRN #60 capsule PRN Reason: Constipation Ibuprofen [Motrin] 600 mg PO Q6H PRN #90 tab PRN Reason: Pain oxyCODONE [Roxicodone] 5 mg PO Q4H PRN #24 tablet PRN Reason: Pain Acetaminophen [Tylenol Extra Strength] 500 - 1,000 mg PO Q8H PRN #90 tablet PRN Reason: Pain Diet: Regular Activity Restrictions: Additional Comments (Nothing in the vagina for 6 weeks: No intercourse, tampons, douching Call for: -Fever greater than 100.5 - Pain that does not improve with pain medication -Heavy bleeding in which you are soaking a pad an hour for 2 hours in a row) Shower Restrictions: Yes (Ok to shower. Let water run over the incision. No soap, scrubbing, lotion) Driving Restrictions: Yes (No driving while on narcotics) Health Concerns: -No lifting more than 10# for 4 weeks: no laundry baskets, baby carriers, grocery bags, etc -Ok to shower. Let water run over the incision. Do not scrub, use soap, or apply lotion. Pat dry with clean towel or use a hair specialist. -The surgical tape may start to peel off after a week. If they are peeling, it is ok to remove. Otherwise, they will be removed at 1 week incision check. -Please call if your incision becomes hot, hard, red, is tender, has a foul smelling discharge, or opens up. -Follow up in one week with Dr. Hollis Additional Instructions or Follow Up instructions: Ibuprofen 600 mg by mouth every 6 hours as needed for pain Acetaminophen 500-1000 mg by mouth every 8 hours as needed for pain Docusate 100-200 mg by mouth twice a day as needed for constipation Oxycodone 5 mg by mouth every 4 hours as needed for pain Iron sulfate 325 mg by mouth twice a day Vitamin C 250 mg by mouth twice a day, with iron No Smoking: If you smoke, Please STOP! Call for help. Follow-up with: Dean Hollis MD [Provider Admit Priv/Credential] -
[2020-04-04 09:12] LABS: BAND NEUTROPHILS % (MANUAL) 2 %; DIFFERENTIAL COMMENT MANUAL DIFFERENTIAL; LYMPHOCYTES # (MANUAL) 2.3 10^3/uL (1.5-3.5); LYMPHOCYTES % (MANUAL) 11 %; MONOCYTES # (MANUAL) 1.7 10^3/uL (0.0-1.0); PLATELET ESTIMATE, MANUAL NORMAL (130-450,000) (NORMAL); PLATELET MORPHOLOGY NORMAL APPEARANCE (NORMAL); RBC MORPHOLOGY (MULTIPLE) 2+ HYPOCHROMASIA (NORMAL)
[2020-04-04] MEDS: GENTAMICIN IV SCH (09:28)
[2020-04-04] MEDS: SODIUM CHLORIDE 0.9% IV SCH (09:28)
--- NOTE | 2020-04-04 09:44 | PROVIDER PROGRESS NOTE ---
Subjective - Prog Note Date Prog Note Date: 04/04/20 Prog Note Time: 09:42 - Subjective Subjective: Patient is doing well. Patient is up and ambulating, tolerating po, and voiding. Pain is well managed with pain medications. Pumping. Infant in N[facility]. Afebrile. HCT stable overnight. Appropriate lochia. Objective - Vital Signs/Intake & Output Reviewed Vital Signs: Yes Vital Signs: Vital Signs x48h Temp Pulse Pulse Resp BP Pulse Ox 04/04/20 08:22 99.0 F 63 63 18 126/74 98 04/04/20 04:20 98.6 F 84 16 101/60 100 Intake & Output: Intake & Output 04/01/20 04/02/20 04/03/20 04/04/20 23:59 23:59 23:59 23:59 Intake Total 12.5 1590 1690.675 200 Output Total 3145 Balance 12.5 -1555 1690.675 200 - Objective General Appearance: positive: No acute distress Respiratory: positive: No respiratory distress Cardiovascular: positive: Other (RR) Peripheral Pulses: 2+ Dorsalis pedis (R), 2+ Dorsalis pedis (L) Abdomen: positive: Other (soft and non-distended. Appropriately tender. Incision CDI with steristrips intact.) Skin: positive: Color nml, Warm, Dry Extremities: positive: Non-tender, No pedal edema Neurologic/Psychiatric: positive: Oriented x3 - Lab Results Fish Bones: 04/04/20 07:43 04/01/20 20:08 Other Labs: Lab Results x24hrs 04/04/20 04/03/20 04/01/20 Range/Units 07:43 19:20 23:58 WBC 20.9 H 21.3 H (4.8-10.8) x10^3/uL RBC 3.07 L 3.08 L (4.20-5.40) 10^6/uL Hgb 9.2 L 9.4 L (12.0-16.0) g/dL Hct 28.8 L 28.7 L (37.0-47.0) % MCV 93.8 93.2 (81.0-99.0) fL MCH 30.0 30.5 (27.0-31.0) pg MCHC 31.9 L 32.8 (32.0-36.0) g/dL RDW 15.2 H 14.8 (12.0-15.0) % Plt Count 279 266 (130-450) 10^3/uL MPV 11.5 H 11.0 H (7.9-10.8) fL Neut # (Auto) Not Reportable Not Reportable Lymph # (Auto) Not Reportable Not Reportable [place] # (Auto) Not Reportable Not Reportable Eos # (Auto) Not Reportable Not Reportable Baso # (Auto) Not Reportable Not Reportable Absolute Nucleated RBC Not Reportable Not Reportable Total Counted 100 100 Band Neuts % (Manual) 2 4 (0 - 10) % Abnorm Lymph % (Manual) 0 0 % Metamyelocytes % 2 H ( - 0) % Nucleated RBC % Not Reportable Not Reportable Neutrophils # (Manual) 16.9 H 17.7 H (1.5-6.6) 10^3/uL Lymphocytes # (Manual) 2.3 1.7 (1.5-3.5) 10^3/uL Monocytes # (Manual) 1.7 H 1.3 H (0.0-1.0) 10^3/uL Eosinophils # (Manual) 0.0 0.2 (0-0.7) 10^3/uL Basophils # (Manual) 0.0 0.0 (0-0.1) 10^3/uL Nucleated RBCs 1 % Differential Comment MANUAL DIFFERENTIAL MANUAL DIFFERENTIAL Manual Slide Review Indicated Indicated WBC Morphology NORMAL APPEARANCE (NORMAL) Platelet Estimate NORMAL (130-450,000) NORMAL (130-450,000) (NORMAL) Platelet Morphology NORMAL APPEARANCE NORMAL APPEARANCE (NORMAL) RBC Morph Micro Appear 2+ HYPOCHROMASIA 1+ POLYCHROMASIA (NORMAL) Blood Type O POSITIVE Antibody Screen NEGATIVE Crossmatch IS Only See Detail Assessment/Plan - Problem List (1) S/P Impression: POD#3 s/p emergent LTCS complicated by acute blood loss anemia and leukocytosis Patient has been afebrile HCT stable s/p PRBC x2 and WBC trending down Completed IV clindamycin this am and IV gentamicin running Cleared for discharge once abx course completed DC instructions given
--- NOTE | 2020-04-04 09:46 | DISCHARGE SUMMARY ---
"Discharge Summary Admit Date: 04/01/20 Discharge Date: 04/04/20 Discharging Provider: Kimberly Condition at Discharge: Good Discharge Disposition: 01 Home, Self Care Discharge Facility Name: [facility] - DIAGNOSES Admission Diagnoses: IUP at 27w1d ega labor Breech presentation Anemia with HCT 26.1 Leukocytosis with WBC 20.1 Discharge Diagnoses with Status of Each Condition: Same and Delivery of gestation via Acute on chronic anemia Leukocytosis, persistent - HPI History of Present Illness: Patient is a 19 yo who presented to the ED at 27w1d ega with labor and advanced cervical dilation. Membranes were noted to be hourglassing through the cervix with legs) contracted within the protruding membranes. Labor progressed rapidly and patient was admitted and brought to the OR for an emergent primary . Admit HCT was 26.1. - CONSULTS | PROCEDURES Procedures: Low transverse at 27 wga - HOSPITAL COURSE Hospital Course: Procedure was done under spinal anesthetic and uterine incision was low transverse although surgical notes indicate that the incision was higher on the uterus than might be attributed to low transverse incision in general. EBL was 800cc. Procedure was well tolerated and without complication. Infant was transported to [facility] NICU after delivery. Postoperative course was complicated by downward trend in HCT with a viv of 6. 9/21.2. LEUKOCYTOSIS: Patient had an elevated WBC of 20.1 at presentation. After delivery, WBC peaked at 22.1. Patient had been given clindamycin intra-operatively and cefazolin post-operatively. WBC continued to climb after cefazolin and patient was started on IV clindamycin 900 mg Q8H and gentamicin 5 mg/kg Q 24 hours. WBC began downward trend after clindamycin/gentamicin. Patient received 2 doses of gentamicin prior to DC. She remained afebrile during her course. ACUTE ON CHRONIC ANEMIA: Blood loss was appropriate but given baseline anemia, she became symptomatic with H&H of 6.9/21.2. She was transfused with 2 units PRBCs and had an appropriate rise. She was also given a dose of IV iron and was discharged on oral iron. Asymptomatic at time of discharge with appropriate lochia. POSTOPERATIVE COURSE: Aside from the exacerbation of baseline leukocytosis and anemia, postoperative course was uncomplicated. Noted to be Rh positive and rubella immune. By POD#3, she was meeting goals for discharge and was discharged to home. - ALLERGIES Allergies/Adverse Reactions: Allergies Allergy/AdvReac Type Severity Reaction Status Date / Time Penicillins AdvReac Itching Verified 12/13/19 13:26 - MEDICATIONS Home Medications: Ambulatory Orders Medication Instructions Recorded Confirmed Metoclopramide [Reglan] 10 mg PO Q4HR PRN 12/13/19 12/13/19 Promethazine Supp [Phenergan Supp] 25 mg AR DAILY PM PRN 12/13/19 12/13/19 Promethazine [Phenergan] 12.5 mg PO Q8HR PRN 12/13/19 12/13/19 Sertraline [Zoloft] 25 mg PO DAILY 12/13/19 12/13/19 Acetaminophen [Tylenol Extra 500 - 1,000 mg PO Q8H PRN #90 04/03/20 Strength] tablet Docusate Sodium 100 - 200 mg PO BID PRN #60 capsule 04/03/20 Ibuprofen [Motrin] 600 mg PO Q6H PRN #90 tab 04/03/20 oxyCODONE [Roxicodone] 5 mg PO Q4H PRN #24 tablet 04/03/20 Ascorbic Acid [Vitamin C] 250 mg PO BID #90 tablet 04/04/20 Ferrous Sulfate 325 mg PO BID #90 tablet 04/04/20 - LABS Result Diagrams: 04/04/20 07:43 04/01/20 20:08 - FOLLOW UP Follow Up: FU in one week for incision check with Dr. Hollis Reviewed that it would be acceptable to have an incision check with a [facility] provider if she is unable to leave the NICU to return to [facility] - TIME SPENT Time Spent in Discharge (Minutes): 30"
== END 2020-04-04 10:55 | disposition home or self-care (01) | DRG 787 ==
LOC: WFO 19:27 → FBP 19:44 → WFO 19:54 → FBP 19:55
PROVIDERS: ADMIT Obstetrics & Gynecology; ATTEND Obstetrics & Gynecology
PROC: 10D00Z1 Extraction of Products of Conception, Low, Open Approach (ICD-10-PCS; principal; 2020-04-01 20:47)
PROC: 30233N1 Transfusion of Nonautologous Red Blood Cells into Peripheral Vein, Percutaneous Approach (ICD-10-PCS; 2020-04-03)
DX: O60.12X0 Preterm labor second trimester with preterm delivery second trimester, not applicable or unspecified (principal); D62 Acute posthemorrhagic anemia; O99.02 Anemia complicating childbirth; O32.8XX0 Maternal care for other malpresentation of fetus, not applicable or unspecified; O75.89 Other specified complications of labor and delivery; D72.829 Elevated white blood cell count, unspecified; Z37.0 Single live birth; Z3A.27 27 weeks gestation of pregnancy; Z79.82 Long term (current) use of aspirin
CPT/HCPCS: 36415; 80053; 85025; 86850; 86900; 86901; 86920; 99214; A9270; J0131; J1170; J1580; J1750; J2210; J7120; P9016

== ENCOUNTER 2020-04-11 22:10 | Emergency (ER) | payer OTHER ==
--- NOTE | 2020-04-11 22:14 | ED Physician Documentation ---
History of Present Illness - Stated complaint Stated Complaint: WOUND CARE - History obtained from History obtained from: Patient - Additonal information Additional information: Patient is a 19-year-old female sent in by the ADMITTING OFFICE ESCORT. She is postop from section with wound disruption she was sent in for packing change.Patient denies any fevers. Review of Systems Constitutional: reports: Reviewed and negative Eyes: reports: Reviewed and negative Ears: reports: Reviewed and negative Nose: reports: Reviewed and negative Throat: reports: Reviewed and negative Cardiac: reports: Reviewed and negative Respiratory: reports: Reviewed and negative GI: reports: Reviewed and negative : reports: Reviewed and negative Skin: reports: Other (Postop wound disruption) Musculoskeletal: reports: Reviewed and negative Neurologic: reports: Reviewed and negative Psychiatric: reports: Reviewed and negative Endocrine: reports: Reviewed and negative Immunocompromised: reports: Reviewed and negative PD PAST MEDICAL HISTORY - Past Medical History Cardiovascular: None Respiratory: None Neuro: None Endocrine/Autoimmune: None GI: None 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 : None HEENT: None Psych: None Musculoskeletal: None Derm: None - Past Surgical History Past Surgical History: No - Present Medications Home Medications: Ambulatory Orders Medication Instructions Recorded Confirmed Metoclopramide [Reglan] 10 mg PO Q4HR PRN 12/13/19 12/13/19 Promethazine Supp [Phenergan Supp] 25 mg HI DAILY PM PRN 12/13/19 12/13/19 Promethazine [Phenergan] 12.5 mg PO Q8HR PRN 12/13/19 12/13/19 Sertraline [Zoloft] 25 mg PO DAILY 12/13/19 12/13/19 Acetaminophen [Tylenol Extra 500 - 1,000 mg PO Q8H PRN #90 04/03/20 Strength] tablet Docusate Sodium 100 - 200 mg PO BID PRN #60 capsule 04/03/20 Ibuprofen [Motrin] 600 mg PO Q6H PRN #90 tab 04/03/20 oxyCODONE [Roxicodone] 5 mg PO Q4H PRN #24 tablet 04/03/20 Ascorbic Acid [Vitamin C] 250 mg PO BID #90 tablet 04/04/20 Ferrous Sulfate 325 mg PO BID #90 tablet 04/04/20 - Allergies Allergies/Adverse Reactions: Allergies Allergy/AdvReac Type Severity Reaction Status Date / Time adhesive tape Allergy Itching Verified 09/26/20 22:25 Penicillins AdvReac Itching Verified 12/13/19 13:26 - Social History Does the pt smoke?: No Smoking Status: Never smoker Does the pt drink ETOH?: No Does the pt have substance abuse?: No - Immunizations Immunizations are current?: Yes - POLST Patient has POLST: No PD ED PE NORMAL - Vitals Vital signs reviewed: Yes - General General: Alert and oriented X 3, No acute distress - HEENT HEENT: PERRL - Neck Neck: Supple, no meningeal sign - Cardiac Cardiac: RRR, No murmur - Respiratory Respiratory: Clear bilaterally - Abdomen Abdomen: Normal bowel sounds, Soft, Other (Lower transverse section scar with mild wound disruption with minimal clear discharge packing in place there is no crepitus no fluctuance or induration.) - Derm Derm: Warm and dry - Extremities Extremities: No deformity - Neuro Neuro: Alert and oriented X 3 - Psych Psych: Normal mood, Normal affect Results - Vitals Vitals: Vital Signs - 24 hr 04/11/20 22:21 Temperature 36.9 C Heart Rate 105 H Respiratory 18 Rate Blood Pressure 118/67 O2 Saturation 98 Oxygen O2 Source Room air PD MEDICAL DECISION MAKING - Consults Consults: Request garden consultant evaluate patient (dr. morton ADMITTING OFFICE ESCORT is here to evaluate patient. see separate note.) Departure - Departure Disposition: 01 Home, Self Care Clinical Impression: Wound disruption, post-op, skin Qualifiers: Encounter type: initial encounter Qualified Code(s): T81.31XA - Disruption of external operation (surgical) wound, not elsewhere classified, initial encounter Condition: Stable Instructions: ED Wound Check Post Op No Infec Follow-Up: Helen Kumar MD [Primary Care Provider] - Comments: Return tomorrow to the ED at 11 am. Discharge Date/Time: 04/11/20 23:49
[2020-04-11 22:22] VITALS: BP 118/67
--- NOTE | 2020-04-12 00:01 | PROVIDER PROGRESS NOTE ---
Subjective - Subjective Subjective: CC: time for wound check HPI: felt burning in the left side of the incision which usually means for patient that it is time for a would packing change. No fevers, no increasing pain. ROS: Eating, urinating, defecating, and pumping well. Reports mood appropriate for her degree of stress with baby in NICU. PMH: anemia, depression, anxiety PSH: primary 10d ago. Tonsills, wisdom teeth, back lipoma OB: s/p for breech and labor at 27w Meds: zoloft, ?levaquin (patient was unsure, said antibiotic started with an "L") Allergies: Penicillin --> anaphylaxis. Tape --> rash SH: no t/e/d. [employer]. O: AVSS Alert, anxious, otherwise NAD Abd soft, nt/nd Wound clean without erythema or floccuence. Deeper wound is intact to probing with a sterile q-tip. Packing removed and the deeper tissue is without necrosis or pus. Wound re-packed with wet 1/4" packing tape. Patient tolerated OK. A/P: 19yo P1 POD #10 s/p primary for labor and breech at 27w. Baby doing well in NICU per her. Had a delayed wound infection, readmitted to [facility], got IV antibiotics and sent home probably on levaquin. Wound disruption had been treated at [facility] with bid packing changes. Fascia is intact. Wound looks good so I think we can cut this frequency down to daily. Pt will return to ER for repeat pack tomorrow. She has pain and lots of apprehension with her dressing changes, feels like she needs to "stay on top of" her pain meds. Discussed that narcs are no longer recommended this far out postop and that at this point they can make pain generally worse instead of better. She will continue scheduled ibuprofen and tylenol that she has been doing appropriately. Objective - Vital Signs/Intake & Output Vital Signs: Vital Signs x48h Temp Pulse Resp BP Pulse Ox 04/11/20 22:21 98.4 F 105 H 18 118/67 98
== END 2020-04-11 23:49 | disposition home or self-care (01) ==
LOC: ED 22:10
DX: O90.0 Disruption of cesarean delivery wound (principal)
CPT/HCPCS: 99281; 99282

== ENCOUNTER 2020-04-12 11:13 | Inpatient (IN) | payer OTHER ==
--- NOTE | 2020-04-12 12:29 | ED Physician Documentation ---
History of Present Illness - Stated complaint Stated Complaint: REPACKING INCISION - Chief complaint Chief Complaint: Wound - History obtained from History obtained from: Patient - History of Present Illness Timing: How many weeks ago (1) - Additonal information Additional information: 19-year-old female had a section done 1 week ago here and her baby was transferred to [facility] in [place]. She ended up at [facility] in [place] and there her wound dehisced partially on the left-hand side. She has come back to the [facility] and she has been evaluated by JEWELRY INSPECTOR here and her wound was packed yesterday. She is come back to the emergency department today for evaluation and repacking. Dr. Donnelly has come into the emergency department and has assumed care of the patient and has consulted Dr. Marin. Review of Systems Constitutional: denies: Fever Respiratory: denies: Cough GI: denies: Vomiting PD PAST MEDICAL HISTORY - Past Medical History Cardiovascular: None Respiratory: None Neuro: None Endocrine/Autoimmune: None GI: None JEWELRY INSPECTOR: None : None HEENT: None Psych: None Musculoskeletal: None Derm: None - Past Surgical History Past Surgical History: No /JEWELRY INSPECTOR: section - Present Medications Home Medications: Ambulatory Orders Medication Instructions Recorded Confirmed Metoclopramide [Reglan] 10 mg PO Q4HR PRN 12/13/19 04/12/20 Promethazine Supp [Phenergan Supp] 25 mg GA DAILY PM PRN 12/13/19 04/12/20 Promethazine [Phenergan] 12.5 mg PO Q8HR PRN 12/13/19 04/12/20 Sertraline [Zoloft] 25 mg PO DAILY 12/13/19 04/12/20 Acetaminophen [Tylenol Extra 500 - 1,000 mg PO Q8H PRN #90 04/03/20 04/12/20 Strength] tablet Docusate Sodium 100 - 200 mg PO BID PRN #60 capsule 04/03/20 04/12/20 Ibuprofen [Motrin] 600 mg PO Q6H PRN #90 tab 04/03/20 04/12/20 oxyCODONE [Roxicodone] 5 mg PO Q4H PRN #24 tablet 04/03/20 04/12/20 Ascorbic Acid [Vitamin C] 250 mg PO BID #90 tablet 04/04/20 04/12/20 Ferrous Sulfate 325 mg PO BID #90 tablet 04/04/20 04/12/20 - Allergies Allergies/Adverse Reactions: Allergies Allergy/AdvReac Type Severity Reaction Status Date / Time adhesive tape Allergy Itching Verified 04/12/20 11:51 Penicillins AdvReac Itching Verified 04/12/20 11:51 - Social History Does the pt smoke?: No Smoking Status: Never smoker Does the pt drink ETOH?: No Does the pt have substance abuse?: No - Immunizations Immunizations are current?: Yes - POLST Patient has POLST: No PD ED PE NORMAL - Vitals Vital signs reviewed: Yes (hpyertensive ) - General General: Alert and oriented X 3, No acute distress, Well developed/nourished - HEENT HEENT: Atraumatic, PERRL, EOMI - Respiratory Respiratory: No respiratory distress - Abdomen Abdomen: Other (There is a healing Pfannenstiel incision with the left side dehisced and there is gauze packed in the wound. I am not able to evaluate the drainage from the wound.) - Derm Derm: Normal color, Warm and dry, No rash - Extremities Extremities: No deformity, No edema - Neuro Neuro: Alert and oriented X 3, certified surgical technologist 2-12 intact, No motor deficit, No sensory deficit, Normal speech Eye Opening: Spontaneous Motor: Obeys Commands Verbal: Oriented GCS Score: 15 - Psych Psych: Normal mood, Normal affect Results - Vitals Vitals: Vital Signs - 24 hr 04/12/20 11:43 Temperature 37.3 C Heart Rate 92 Respiratory 18 Rate Blood Pressure 131/74 H O2 Saturation 97 Oxygen O2 Source Room air PD MEDICAL DECISION MAKING - ED course Complexity details: considered differential, d/w patient, d/w family ED course: 19-year-old female is a patient in the emergency department being seen by her JEWELRY INSPECTOR doctor for a partial dehiscence of her wound. The wound does look like it is potentially infected and there is some significant serous drainage from it and the patient is being admitted in the hospital for CT scanning and further evaluation and treatment of her wound. Departure - Departure Disposition: [facility] DC/Xfer Clinical Impression: Wound disruption, post-op, skin Qualifiers: Encounter type: initial encounter Qualified Code(s): T81.31XA - Disruption of external operation (surgical) wound, not elsewhere classified, initial encounter Condition: Stable Discharge Date/Time: 04/12/20 14:06
[2020-04-12] MEDS ORDERED: ONDANSETRON ODT 4 MG TABLET TL PRN (12:44)
[2020-04-12] MEDS ORDERED: SODIUM CHLORIDE FLUSH 0.9% 10 ML SYRINGE IVP PRN ×2 (12:44)
[2020-04-12] MEDS ORDERED: ZOLPIDEM 5 MG TABLET PO PRN (12:44)
[2020-04-12] MEDS ORDERED: oxyCODONE 5 MG TABLET PO PRN (12:44)
[2020-04-12 13:18] LABS: BASOPHILS % (AUTO) 0.6 %; EOSINOPHILS % (AUTO) 1.2 %; HGB - HEMOGLOBIN 10.8 g/dL (12.0-16.0); LYMPHOCYTES % (AUTO) 17.6 %; MEAN CORPUSCULAR HEMOGLOBIN 29.8 pg (27.0-31.0); MEAN CORPUSCULAR HGB CONC 31.3 g/dL (32.0-36.0); MEAN CORPUSCULAR VOLUME 95.3 fL (81.0-99.0); MEAN PLATELET VOLUME 9.5 fL (7.9-10.8); MONOCYTES % (AUTO) 6.5 %; NEUTROPHILS % (AUTO) 67.5 %; PLT - PLATELET COUNT 647 10^3/uL (130-450); RED BLOOD COUNT 3.62 10^6/uL (4.20-5.40); RED CELL DISTRIBUTION WIDTH 14.1 % (12.0-15.0); WHITE BLOOD COUNT 11.1 x10^3/uL (4.8-10.8)
[2020-04-12 13:25] LABS: ABNORMAL LYMPHS % (MANUAL) 0 %
[2020-04-12 13:26] LABS: ALBUMIN 3.3 g/dL (3.2-5.5); ALBUMIN/GLOBULIN RATIO 0.7 (1.0-2.2); BILIRUBIN,TOTAL 0.3 mg/dL (0.2-1.0); CALCIUM 10.1 mg/dL (8.5-10.3); CREATININE 0.7 mg/dL (0.4-1.0); TOTAL PROTEIN 7.8 g/dL (6.7-8.2)
[2020-04-12] MEDS ORDERED: IOVERSOL 320 100 ML VIAL IVP ONE ×2 (13:32→14:08)
[2020-04-12 14:15] LABS: BAND NEUTROPHILS % (MANUAL) 1 %; LYMPHOCYTES # (MANUAL) 2.9 10^3/uL (1.5-3.5); LYMPHOCYTES % (MANUAL) 17 %; METAMYELOCYTES % (MANUAL) 1 %; MONOCYTES # (MANUAL) 0.9 10^3/uL (0.0-1.0); MYELOCYTES % (MANUAL) 4 %
[2020-04-12 14:16] LABS: DIFFERENTIAL COMMENT MANUAL DIFFERENTIAL
--- NOTE | 2020-04-12 14:24 | CT Report ---
PROCEDURE: Abdomen/Pelvis W INDICATIONS: Wound infx disruption, r/o fascial dehis CONTRAST: IV CONTRAST: Optiray 320 ml: 100 PO CONTRAST: *NO PO CONTRAST TECHNIQUE: After the administration of intravenous contrast, 5 mm thick sections acquired from the diaphragms to the symphysis. 5 mm thick coronal and sagittal reformats were acquired. For radiation dose reducti on, the following was used: automated exposure control, adjustment of mA and/or kV according to teresa ent size. COMPARISON: None. FINDINGS: Image quality: Excellent. ABDOMEN: Lung bases: Lung bases are clear. Heart size is normal. Solid organs: Liver and spleen are normal in size and enhancement. Focal fatty infiltration noted in the liver adjacent to the falciform ligament. Gallbladder is normal. Biliary system is non dilated. Pancreas enhances normally. No adrenal nodules. Kidneys demonstrate normal size and enhancement, without hydronephrosis. Peritoneum and bowel: Bowel loops demonstrate normal wall thickness and caliber. Large amount of sto ol noted in the colon. No free fluid or air. Nodes and vessels: No retroperitoneal or mesenteric adenopathy by size criteria. Aorta and inferior vena cava are normal in size. Miscellaneous: No ventral hernias. Inflammation small air locules noted in the subcutaneous fat of t he lower anterior pelvic wall likely related to recent . PELVIS: Genitourinary: Bladder wall thickness is normal. Uterus is enlarged compatible with state . Linear hypodensity noted in the anterior margin of the lower uterine segment related to i ncision site. Dehiscence can't be excluded by CT imaging. Inflammation noted adjacent to the anterior margin of the uterus which could be postsurgical or infectious. No abscess identified. Miscellaneous: No inguinal hernias or adenopathy. Bones: No suspicious bony lesions. No vertebral body compression fractures. IMPRESSION: 1. Lower uterine segment postoperative changes. Dehiscence cannot be excluded by CT imaging. Recommen d pelvic ultrasound for further characterization if clinically indicated. 2. Inflammation along the anterior margin of the uterus which could be postsurgical or related to inf ection. No abscess. 3. No free intraperitoneal fluid or air. Reviewed by: Chary Loja MD, PhD on 04/12/2020 2:23 PM PDT Approved by: Chary Loja MD, PhD on 04/12/2020 2:23 PM PDT Station ID: [id number]
[2020-04-12] MEDS: KETOROLAC 30 MG/ML VIAL IVP SCH ×2 (15:08→18:39)
[2020-04-12] MEDS: DOXYCYCLINE 100 MG TABLET PO SCH ×2 (15:09→20:56)
[2020-04-12] MEDS: levoFLOXacin 250 MG TABLET PO SCH (15:09)
[2020-04-12] MEDS: ACETAMINOPHEN 500 MG TABLET PO SCH ×2 (15:09→20:56)
[2020-04-12] MEDS: metroNIDAZOLE 250 MG TABLET PO SCH ×2 (15:10→20:56)
[2020-04-12] MEDS: HEPARIN 5,000 UNIT/ML VIAL SUBQ SCH ×2 (15:11→20:56)
[2020-04-12] MEDS: LACTATED RINGERS 1,000 ML IV SCH (15:19)
--- NOTE | 2020-04-12 16:15 | HISTORY & PHYSICAL EXAMINATION ---
DATE OF SERVICE: 04/12/2020 Physician: Sonam Donnelly MD ADMISSION DIAGNOSES 1. Postoperative wound infection and disruption. 2. Eleven days status post section. CHIEF COMPLAINT: Here for a wound check. HISTORY OF PRESENT ILLNESS: Feeling the same as usual overall. Sometimes she feels burning at the site of her incision, and generally her incision has been quite painful and she would like to have more narcotics. She is not having any fevers at home, but again, the pain is not improving on a daily basis. REVIEW OF SYSTEMS: No fevers, cough, shortness of breath, chest pain, problems with defecation, problems with urination, heavy vaginal bleeding, or mood issues. She is having some breast symptoms including firmness, cracking of the right nipple, and some pain before pumping. PAST MEDICAL HISTORY 1. Anemia. 2. Anxiety and depression. PAST SURGICAL HISTORY 1. Primary low transverse section on 03/31/2020. 2. Tonsillectomy. 3. [place] teeth removal. 4. Back lipoma removal. OBSTETRIC HISTORY: The patient is a G1, P1, status post section for breech and labor at 27 weeks. MEDICATIONS 1. Zoloft. 2. Probably Levaquin. Patient is not sure of the antibiotic she is on, but she says it starts with an L. ALLERGIES 1. PENICILLIN RESULTS IN ANAPHYLAXIS. 2. TAPE RESULTS IN A RASH. SOCIAL HISTORY: No tobacco, alcohol or drug use. 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 She is partnered with a very supportive gentleman. Her baby is currently in the NICU and doing well, per patient. PHYSICAL EXAM VITAL SIGNS: Temperature 99.1, blood pressure 131/74, respirations 18, heart rate 92, O2 saturation 97% on room air. GENERAL: The patient is alert and somewhat anxious appearing, but in no apparent distress. HEENT: Atraumatic and normocephalic. External eye motions are intact. HEART: Regular rate and rhythm. No clicks, rubs, gallops, or murmurs. LUNGS: Clear to auscultation bilaterally. ABDOMEN: Soft, nontender, and nondistended. Incision is disrupted on the left side, detention. There is a tunnel extending all the way to the corner of the right hand incision as well and is disrupted down to the level of the fascia, and there is a bit of pus present coming out from the right hand tunnel. There is excessive serosanguineous drainage on her ABD pad that continued to weep out through the dressing change. Wound culture was obtained and the incision was repacked with half-inch packing tape that was moistened. EXTREMITIES: Lower extremities without clubbing, cyanosis, edema. PSYCHIATRIC: Affect is anxious. Speech, eye contact and interaction are all appropriate. NEUROLOGIC: Gait is intact. MUSCULOSKELETAL: Gait is intact. LABORATORY DATA: White count 11.1, hematocrit 34.5, platelets 647. Her potassium is elevated at 5.1. Her LFTs and kidney function tests are normal. Lactate normal. ASSESSMENT AND PLAN 1. A 19-year-old P1 eleven days status post emergency primary low transverse section for breech and labor at 27 weeks. Her section was performed here. Her fascia had been closed with PDS and it looks like no subcuticular sutures were performed. It appears that the patient received spinal anesthesia, so I would guess that she had a chlorhexidine prep and not a Betadine prep. In any event, she was discharged without complications, and then in the ICU she complained of infection symptoms. She did have a wound disruption and a purulent infection, and was admitted for IV antibiotics and treatment in [place]. After 2 days inpatient, she was sent home with b.i.d. wound packing that we were supposed to coordinate for her on an outpatient basis. For this, she came into the ER today and she was noted to have a recurrence of her wound infection. This is despite being on Levaquin at home. Dr. Marin and I discussed her care. He is a general surgeon. Recommend CT scan for evaluation of any seromas or abscesses, as well as evaluating the integrity of the fascia. She will be on bedrest. We will add doxycycline and metronidazole to her Levaquin. After she undergoes more adequate IV antibiotic therapy, she will go to OR tomorrow for wound exploration, unroofing of her right-sided skin, and placement of a wound VAC. Patient will be n.p.o. until her CT results are back. 2. Anxiety is stable. We will continue the Zoloft she takes on an outpatient basis. 3. Venous thromboembolism prophylaxis: The patient is at elevated risk as she is and so we will do heparin 5000 units b.i.d., as well as SCDs. 4. : Routine issues have been arising but she is coping with them well. She will use our hospital breast pump and will continue to pump and store. She does not need to pump and dump for the antibiotics that she is on--I also notified doll wig maker who is OK with using the milk. CT showed infection without abscess or seroma, no intrapelvic abscesses. TD: 04/12/2020 13:38 CHLOE
[2020-04-12] MEDS: SODIUM CHLORIDE FLUSH 0.9% 10 ML SYRINGE IVP SCH ×2 (17:45)
[2020-04-12] MEDS: DOCUSATE SODIUM 100 MG CAPSULE PO SCH (20:56)
--- NOTE | 2020-04-12 21:00 | PROVIDER PROGRESS NOTE ---
Subjective - Subjective Subjective: No change in the way she feels AVSS Packing changed, wound appearance is unchanged, less serosanguinous fluid on the ABD than last change. To OR in am to open right sided skin and place a vac. Objective - Vital Signs/Intake & Output Vital Signs: Vital Signs x48h Temp Pulse Resp BP Pulse Ox 04/12/20 17:45 103/60 04/12/20 16:00 97.9 F 83 16 96/53 L 97 - Lab Results Fish Bones: 04/12/20 13:10 04/12/20 13:10 Other Labs: Lab Results x24hrs 04/12/20 04/12/20 04/12/20 Range/Units 13:10 13:10 13:10 WBC 11.1 H (4.8-10.8) x10^3/uL RBC 3.62 L (4.20-5.40) 10^6/uL Hgb 10.8 L (12.0-16.0) g/dL Hct 34.5 L (37.0-47.0) % MCV 95.3 (81.0-99.0) fL MCH 29.8 (27.0-31.0) pg MCHC 31.3 L (32.0-36.0) g/dL RDW 14.1 (12.0-15.0) % Plt Count 647 H (130-450) 10^3/uL MPV 9.5 (7.9-10.8) fL Neut # (Auto) Not Reportable Lymph # (Auto) Not Reportable [place] # (Auto) Not Reportable Eos # (Auto) Not Reportable Baso # (Auto) Not Reportable Absolute Nucleated RBC Not Reportable Total Counted 100 Band Neuts % (Manual) 1 (0 - 10) % Reactive Lymphs % (Man) 9 % Abnorm Lymph % (Manual) 0 % Metamyelocytes % 1 H ( - 0) % Myelocytes % 4 H ( - 0) % Nucleated RBC % Not Reportable Neutrophils # (Manual) 6.8 H (1.5-6.6) 10^3/uL Lymphocytes # (Manual) 2.9 (1.5-3.5) 10^3/uL Monocytes # (Manual) 0.9 (0.0-1.0) 10^3/uL Eosinophils # (Manual) 0.0 (0-0.7) 10^3/uL Basophils # (Manual) 0.0 (0-0.1) 10^3/uL Differential Comment MANUAL DIFFERENTIAL Sodium 143 (135-145) mmol/L Potassium 5.1 H (3.5-5.0) mmol/L Chloride 107 (101-111) mmol/L Carbon Dioxide 22 (21-32) mmol/L Anion Gap 14.0 H (6-13) BUN 15 (6-20) mg/dL Creatinine 0.7 (0.4-1.0) mg/dL Estimated GFR (MDRD) 129 (>89) Glucose 87 (70-100) mg/dL Lactic Acid 0.8 (0.5-2.2) mmol/L Calcium 10.1 (8.5-10.3) mg/dL Total Bilirubin 0.3 (0.2-1.0) mg/dL AST 17 (10-42) IU/L ALT 16 (10-60) IU/L Alkaline Phosphatase 94 (42-121) IU/L Total Protein 7.8 (6.7-8.2) g/dL Albumin 3.3 (3.2-5.5) g/dL Globulin 4.5 H (2.1-4.2) g/dL Albumin/Globulin Ratio 0.7 L (1.0-2.2)
[2020-04-13] MEDS: KETOROLAC 30 MG/ML VIAL IVP SCH ×2 (00:48→06:56)
[2020-04-13] MEDS: LACTATED RINGERS 1,000 ML IV SCH ×2 (00:48→10:35)
[2020-04-13] MEDS: SODIUM CHLORIDE FLUSH 0.9% 10 ML SYRINGE IVP SCH ×6 (05:06→15:28)
[2020-04-13] MEDS: ACETAMINOPHEN 500 MG TABLET PO SCH ×2 (05:22→13:40)
--- NOTE | 2020-04-13 06:35 | PROVIDER PROGRESS NOTE ---
Subjective - Subjective Subjective: O: AVSS. Hypotensive but HR normal and pt is small in stature. A/P: 19yo P1 11d s/p emergency for 27w breech labor. Complicated by wound infection and disruption. CT without abscess, seroma, or intrapelvic abnormalities. On levaquin, doxy, and metronidazole. Plan to go to OR today for unroofing skin, examine the fascia visually, and place wound vac. Dr. Kane marcos will be performing the procedure. Anticipate that patient will be discharged today on her 3 po antibiotics. Objective - Vital Signs/Intake & Output Vital Signs: Vital Signs x48h Temp Pulse Resp BP Pulse Ox 04/13/20 03:45 98.1 F 87 16 98/57 L 97 04/13/20 00:15 98.2 F 79 16 100/52 L 99 Intake & Output: Intake & Output 04/10/20 04/11/20 04/12/20 04/13/20 23:59 23:59 23:59 23:59 Intake Total 500 948.333 Balance 500 948.333 - Lab Results Fish Bones: 04/12/20 13:10 04/12/20 13:10 Other Labs: Lab Results x24hrs 04/12/20 04/12/20 04/12/20 Range/Units 13:10 13:10 13:10 WBC 11.1 H (4.8-10.8) x10^3/uL RBC 3.62 L (4.20-5.40) 10^6/uL Hgb 10.8 L (12.0-16.0) g/dL Hct 34.5 L (37.0-47.0) % MCV 95.3 (81.0-99.0) fL MCH 29.8 (27.0-31.0) pg MCHC 31.3 L (32.0-36.0) g/dL RDW 14.1 (12.0-15.0) % Plt Count 647 H (130-450) 10^3/uL MPV 9.5 (7.9-10.8) fL Neut # (Auto) Not Reportable Lymph # (Auto) Not Reportable [place] # (Auto) Not Reportable Eos # (Auto) Not Reportable Baso # (Auto) Not Reportable Absolute Nucleated RBC Not Reportable Total Counted 100 Band Neuts % (Manual) 1 (0 - 10) % Reactive Lymphs % (Man) 9 % Abnorm Lymph % (Manual) 0 % Metamyelocytes % 1 H ( - 0) % Myelocytes % 4 H ( - 0) % Nucleated RBC % Not Reportable Neutrophils # (Manual) 6.8 H (1.5-6.6) 10^3/uL Lymphocytes # (Manual) 2.9 (1.5-3.5) 10^3/uL Monocytes # (Manual) 0.9 (0.0-1.0) 10^3/uL Eosinophils # (Manual) 0.0 (0-0.7) 10^3/uL Basophils # (Manual) 0.0 (0-0.1) 10^3/uL Differential Comment MANUAL DIFFERENTIAL Sodium 143 (135-145) mmol/L Potassium 5.1 H (3.5-5.0) mmol/L Chloride 107 (101-111) mmol/L Carbon Dioxide 22 (21-32) mmol/L Anion Gap 14.0 H (6-13) BUN 15 (6-20) mg/dL Creatinine 0.7 (0.4-1.0) mg/dL Estimated GFR (MDRD) 129 (>89) Glucose 87 (70-100) mg/dL Lactic Acid 0.8 (0.5-2.2) mmol/L Calcium 10.1 (8.5-10.3) mg/dL Total Bilirubin 0.3 (0.2-1.0) mg/dL AST 17 (10-42) IU/L ALT 16 (10-60) IU/L Alkaline Phosphatase 94 (42-121) IU/L Total Protein 7.8 (6.7-8.2) g/dL Albumin 3.3 (3.2-5.5) g/dL Globulin 4.5 H (2.1-4.2) g/dL Albumin/Globulin Ratio 0.7 L (1.0-2.2)
[2020-04-13] MEDS: metroNIDAZOLE 250 MG TABLET PO SCH (09:00)
[2020-04-13] MEDS ORDERED: SERTRALINE 50 MG TABLET PO SCH (09:00)
[2020-04-13] MEDS: DOCUSATE SODIUM 100 MG CAPSULE PO SCH (09:15)
[2020-04-13] MEDS: DOXYCYCLINE 100 MG TABLET PO SCH (09:15)
[2020-04-13] MEDS: levoFLOXacin 250 MG TABLET PO SCH (09:15)
[2020-04-13] MEDS: HEPARIN 5,000 UNIT/ML VIAL SUBQ SCH (10:01)
--- NOTE | 2020-04-13 10:52 | ANESTHESIA ---
Pre-Anesthesia VS, & Labs - Diagnosis wound dehisence - Procedure Clean wound/wound vac Vital Signs: Temp Pulse Resp BP Pulse Ox 36.9 C 80 18 105/60 99 04/13/20 08:00 04/13/20 08:00 04/13/20 08:00 04/13/20 08:00 04/13/20 08:00 Height: 5 ft 1 in Weight (kg): 65 kg Body Mass Index: 27.1 BMI Classification: Overweight - NPO >8 hours - Is Patient ?: No - Lab Results Current Lab Results: Laboratory Tests 04/12/20 13:10: Sodium 143, Potassium 5.1 H, Chloride 107, Carbon Dioxide 22, Anion Gap 14.0 H, BUN 15, Creatinine 0.7, Estimated GFR (MDRD) 129, Glucose 87, Calcium 10.1, Total Bilirubin 0.3, AST 17, ALT 16, Alkaline Phosphatase 94, Total Protein 7.8, Albumin 3.3, Globulin 4.5 H, Albumin/Globulin Ratio 0.7 L 04/12/20 13:10: Lactic Acid 0.8 04/12/20 13:10: WBC 11.1 H, RBC 3.62 L, Hgb 10.8 L, Hct 34.5 L, MCV 95.3, MCH 29.8, MCHC 31.3 L, RDW 14.1, Plt Count 647 H, MPV 9.5, Neut # (Auto) Not Reportable, Lymph # (Auto) Not Reportable, [place] # (Auto) Not Reportable, Eos # (Auto) Not Reportable, Baso # (Auto) Not Reportable, Absolute Nucleated RBC Not Reportable, Total Counted 100, Band Neuts % (Manual) 1, Reactive Lymphs % (Man) 9, Abnorm Lymph % (Manual) 0, Metamyelocytes % 1 H, Myelocytes % 4 H, Nucleated RBC % Not Reportable, Neutrophils # (Manual) 6.8 H, Lymphocytes # (Manual) 2.9, Monocytes # (Manual) 0.9, Eosinophils # (Manual) 0.0, Basophils # (Manual) 0.0, Differential Comment MANUAL DIFFERENTIAL Fish Bones: 04/12/20 13:10 04/12/20 13:10 Home Medications and Allergies Active Medications Acetaminophen (Tylenol) 1,000 mg PO Q8H ARLETTE Last Admin: 04/13/20 05:22 Dose: 1,000 mg Documented by: Docusate Sodium (Colace 100mg Capsule) 100 mg PO BID [facility] Last Admin: 04/13/20 09:15 Dose: 100 mg Documented by: Doxycycline Hyclate (Vibramycin) 100 mg PO BID [facility] Last Admin: 04/13/20 09:15 Dose: 100 mg Documented by: Heparin Sodium (Porcine) () 5,000 unit SUBQ BID [facility] Last Admin: 04/13/20 10:01 Dose: Not Given Documented by: Lactated Ringer's (Lr) 1,000 mls @ 100 mls/hr IV .Q10H [facility] Last Admin: 04/13/20 10:35 Dose: 100 mls/hr Documented by: Levofloxacin (Levaquin) 750 mg PO DAILY [facility] Last Admin: 04/13/20 09:15 Dose: 750 mg Documented by: Metronidazole (Flagyl) 500 mg PO BID [facility] Last Admin: 04/12/20 20:56 Dose: 500 mg Documented by: Ondansetron HCl (Zofran Odt) 4 mg TL Q4H PRN PRN Reason: Nausea / Vomiting Last Admin: 04/13/20 10:35 Dose: 4 mg Documented by: Oxycodone HCl (Roxicodone) 5 mg PO Q4HR PRN PRN Reason: PAIN Sertraline HCl (Zoloft) 50 mg PO DAILY [facility] Last Admin: 04/13/20 09:15 Dose: 50 mg Documented by: Sodium Chloride (Normal Saline Flush 0.9%) 10 ml IVP PRN PRN PRN Reason: NEEDED PER PROVIDER ORDERS Sodium Chloride (Normal Saline Flush 0.9%) 10 ml IVP 0100,0900,1700 [facility] Last Admin: 04/13/20 10:02 Dose: Not Given Documented by: Sodium Chloride (Normal Saline Flush 0.9%) 10 ml IVP PRN PRN PRN Reason: NEEDED PER PROVIDER ORDERS Sodium Chloride (Normal Saline Flush 0.9%) 10 ml IVP 0100,0900,1700 [facility] Last Admin: 04/13/20 10:02 Dose: Not Given Documented by: Zolpidem Tartrate (Ambien) 5 mg PO QPM PRN PRN Reason: Insomnia Last Admin: 04/12/20 21:26 Dose: 5 mg Documented by: Metoclopramide [Reglan] 10 mg PO Q4HR PRN 12/13/19 Promethazine Supp [Phenergan Supp] 25 mg AR DAILY PM PRN 12/13/19 Promethazine [Phenergan] 12.5 mg PO Q8HR PRN 12/13/19 Sertraline [Zoloft] 25 mg PO DAILY 12/13/19 Allergies/Adverse Reactions: Allergies Allergy/AdvReac Type Severity Reaction Status Date / Time adhesive tape Allergy Itching Verified 04/12/20 11:51 Penicillins AdvReac Itching Verified 04/12/20 11:51 Anes History & Medical History - Anesthetic History Anesthesia Complications: reports: No previous complications Family history of Anesthesia Complications: Denies Family history of Malignant Hyperthermia: Denies - Medical History Cardiovascular: reports: None Pulmonary: reports: None Gastrointestinal: reports: None Urinary: reports: None Neuro: reports: None Musculoskeletal: reports: None Endocrine/Autoimmune: reports: None Blood Disorders: reports: Anemia Skin: reports: None Smoking Status: Never smoker History of Cancer?: No - Surgical History Eyes Ears Nose Throat (EENT): Tonsil/Adenoidectomy Gynecologic: section Exam General: Alert, Oriented x3, Cooperative, No acute distress Dental: WNL Mouth Openin Fingerbreadth Neck Mobility: Normal Mallampati classification: I Thyromental Distance: 4-6 cm Respiratory: Lungs clear, Normal breath sounds, No respiratory distress, No accessory muscle use Mental/Cognitive Status: Alert/Oriented X3, Normal for patient Cognitive Status: Within normal limits Plan Anesthesia Type: General (Discussed expectaions and use of LMA.) Consent for Procedure(s) Verified and Reviewed: Yes Code Status: Attempt Resuscitation ASA classification: 1-Healthy patient Is this case an emergency?: Yes (Unscheduled)
[2020-04-13] MEDS ORDERED: ONDANSETRON 4 MG/2 ML VIAL IVP PRN (10:54)
[2020-04-13] MEDS ORDERED: NALOXONE 0.4 MG/ML VIAL IVP PRN (10:54)
[2020-04-13] MEDS ORDERED: MORPHINE 2 MG/ML CARPUJECT IVP PRN (10:54)
[2020-04-13] MEDS ORDERED: ATROPINE ABBOJECT 1 MG/10 ML SYRINGE IVP PRN (10:54)
[2020-04-13] MEDS ORDERED: fentaNYL 100 MCG/2 ML VIAL IVP PRN (10:54)
[2020-04-13] MEDS ORDERED: ePHEDrine 50 MG/ML VIAL IVP PRN (10:54)
[2020-04-13] MEDS ORDERED: METOCLOPRAMIDE 10 MG/2 ML VIAL IVP PRN (10:54)
[2020-04-13] MEDS ORDERED: LIDOCAINE 1%-EPI 1:100000 20 ML MDV ONE (10:58)
[2020-04-13] MEDS ORDERED: BUPIVACAINE 0.5% PF 30 ML VIAL ONE (10:59)
[2020-04-13] MEDS ORDERED: LACTATED RINGERS 1,000 ML IV SCH (11:00)
--- NOTE | 2020-04-13 11:17 | CONSULTATION NOTE ---
Referring Provider Name of Referring Provider:: Dr. Donnelly Consult Date: 04/13/20 Chief Complaint - Chief Complaint Chief Complaint: Pfannenstiel wound dehiscence History of Present Illness - Admitted From Admitted From:: Emergency room/home - History Obtained From Records Reviewed: Electronic medical record and Dr. Donnelly from obst etrics/gynecology History obtained from: Patient Exam Limitations: None - History of Present Illness HPI Comment/Other: 19-year female approximately 2 weeks who delivered at 27 weeks baby girl that is currently in the ICU off-site. Patient presented to the ER yesterday with Pfannenstiel wound drainage and concerns for persistent infectious process. Outpatient evaluation and treatment per Dr. Donnelly was shared with me. Surgical consultation was obtained to discuss management of a infected Pfannenstiel wound in the acute . Patient is a non-smoker. She is not a diabetic. She does not take steroids. Uncertain to what degree steroids were dosed peripartum as it relates to the and care of her premature baby girl. She reports fevers in spite of Tylenol. She is been admitted to the obstetrical service on doxycycline, Levaquin, and Flagyl. Sensitive serous drainage reported in recent days concerning for possible fascial dehiscence. History - Past Medical History Cardiovascular: reports: None Respiratory: reports: None Neuro: reports: None Endocrine/Autoimmune: reports: None GI: reports: None BUTCHER CHICKEN AND FISH: reports: None : reports: None HEENT: reports: None Psych: reports: None Musculoskeletal: reports: None Derm: reports: None MRSA Hx?: No - Past Surgical History /BUTCHER CHICKEN AND FISH: reports: section HEENT: reports: Tonsil/Adenoidectomy - POLST Patient has POLST: No Meds/Allgy - Home Medications Home Medications: Ambulatory Orders Medication Instructions Recorded Confirmed Metoclopramide [Reglan] 10 mg PO Q4HR PRN 12/13/19 04/12/20 Promethazine Supp [Phenergan Supp] 25 mg [place] DAILY PM PRN 12/13/19 04/12/20 Promethazine [Phenergan] 12.5 mg PO Q8HR PRN 12/13/19 04/12/20 Sertraline [Zoloft] 25 mg PO DAILY 12/13/19 04/12/20 Acetaminophen [Tylenol Extra 500 - 1,000 mg PO Q8H PRN #90 04/03/20 04/12/20 Strength] tablet Docusate Sodium 100 - 200 mg PO BID PRN #60 capsule 04/03/20 04/12/20 Ibuprofen [Motrin] 600 mg PO Q6H PRN #90 tab 04/03/20 04/12/20 oxyCODONE [Roxicodone] 5 mg PO Q4H PRN #24 tablet 04/03/20 04/12/20 Ascorbic Acid [Vitamin C] 250 mg PO BID #90 tablet 04/04/20 04/12/20 Ferrous Sulfate 325 mg PO BID #90 tablet 04/04/20 04/12/20 - Allergies Allergies/Adverse Reactions: Allergies Allergy/AdvReac Type Severity Reaction Status Date / Time adhesive tape Allergy Itching Verified 04/12/20 11:51 Penicillins AdvReac Itching Verified 04/12/20 11:51 Review of Systems - Constitutional Constitutional: reports: Fatigue, Fever - Respiratory Respiratory: denies: Cough, Wheezing, Hemoptysis, Orthopnea, SOB at rest - Gastrointestinal Gastrointestinal: reports: Abdominal pain. denies: Nausea, Vomiting Exam - Vital Signs Reviewed Vital Signs: Yes Vital Signs: Vital Signs x48h Temp Pulse Resp BP Pulse Ox 04/13/20 08:00 36.9 C 80 18 105/60 99 04/13/20 03:45 36.7 C 87 16 98/57 L 97 - Physical Exam General Appearance: positive: No acute distress, Alert Eyes Bilateral: positive: Normal inspection ENT: positive: ENT inspection nml Neck: positive: Nml inspection Respiratory: positive: Chest non-tender, No respiratory distress, Breath sounds nml. negative: Wheezes, Rales, Rhonchi Cardiovascular: positive: Regular rate & rhythm Abdomen: positive: No distention, Tenderness, Other (Approximately 20 cm Pfannenstiel incision for which the left lateral aspect is dehisced with purulent drainage noted as well as fibrinous exudate. No local induration or blanching erythema appreciated. Wound with viable edges. No evidence of necrosis at this time. Packing placed per obstetri). negative: Guarding, Rebound Back: positive: Nml inspection Skin: positive: Color nml Extremities: positive: Non-tender, Full ROM, Nml appearance Neurologic/Psychiatric: positive: Oriented x3, CN's nml (2-12), Motor nml, Sensation nml, Mood/affect nml Conclusion/Plan - Diagnosis Diagnosis: 1. . 2. Wound dehiscence. 3. Wound infection. 4. Status post with Pfannenstiel - Plan Plan: 1. Agree with admission for IV antibiotics. Defer antibiotics to obstetrical service. With regard to coverage doxycycline is appropriate for MRSA coverage, Levaquin and Flagyl will cover broadly from my perspective as well. Await final cultures. 2. With regard to the size of the wound I believe this would best be served with wound VAC and operative debridement and pulse lavage. Discussed with obstetrics who was also in agreement. Patient will need outpatient wound care follow-up. 3. Plan n.p.o., OR tomorrow with wound VAC placement. Risk and benefits discussed questions answered informed consent was obtained. Please note that voice recognition software was used to transcribe this note and inadvertent errors might persist in spite of review and editing. I am obliged to you for your attention. I am thankful to you for allowing me to participate with you in this care of this patient. - Lab Results Fish Bones: 04/12/20 13:10 04/12/20 13:10 - Diagnostic Imaging Results Diagnostic Imaging Results: positive: Final report reviewed Diagnostic Imaging Results Comments: Review of CAT scan abdomen pelvis: 1. Bladder wall thickness is normal. There is no evidence of any bladder discontinuity that would explain the extent of the patient's wound drainage. Next 2. Linear hypodensity noted in the anterior margin of the lower uterine segment related to incision site. Dehiscence cannot be excluded by CT imaging. However there is no evidence of any herniation or dehiscence on my review of the CT imaging. No undrained abscesses evident as well on my review. 3. From report no free intraperitoneal fluid or air, inflammation along the anterior margin of the uterus could be postsurgical or related to infection. No abscess. Lower uterine segment postoperative changes. Dehiscence cannot be excluded by CT imaging. Recommend pelvic ultrasonography to further characterize if clinically indicated.
--- NOTE | 2020-04-13 11:17 | OPERATIVE REPORT ---
Operative Report - General Admit Date: 04/12/20 Planned Procedure: 1. Wound debridement 2. Wound washout 3. Wound VAC placement Pre-Op Diagnosis: , Pfannenstiel wound infection, wound dehiscence Procedure Performed: 1. Wound debridement 2. Wound washout 3. Wound VAC placement Post Op Diagnosis: Same, intact fascia/no concerns for fascial dehiscence - Procedure Note Primary Surgeon: Tomas Secondary Surgeon: Khris Anesthesia Provider: IRIS Anesthesia Technique: Local, MAC Pathology: Wound culture for Gram stain's, aerobic anaerobic, C & S Estimated Blood Loss (mL): 10 Drain/Tube Type: Other (Wound dimensions are as follows: 19 cm in width by 3 cm in maximal height, tracking at its base 3 cm through the subcutaneous tissues. Please note that at the base of the wound there is an Adaptic overlying the fascia and the wound VAC sponge is cut in a single piece to fill the defect.) Indications: Please see EMR and surgical consultation. Findings: 1. No induration, no undrained loculations, minimal food redness exudate. 2. Fascia intact with no evidence of any dehiscence at the level of the fascia. 3. Wound dimensions are as follows: 19 cm in width by 3 cm in maximal height, tracking at its base 3 cm through the subcutaneous tissues. Please note that at the base of the wound there is an Adaptic overlying the fascia and the wound VAC sponge is cut in a single piece to fill the defect. 4. Please note that the wound is hemostatic at the conclusion of this case. Complications: NONE - Other Other Information/Narrative: Pending addendum.
[2020-04-13] MEDS ORDERED: LACTATED RINGERS 600 ML IV ONE (11:52)
[2020-04-13] MEDS: HYDROmorphone 0.5 MG/0.5 ML SYRINGE IVP PRN ×3 (12:00→12:16)
[2020-04-13] MEDS ORDERED: HYDROmorphone 1 MG/ML CARPUJECT ONE (12:07)
[2020-04-13] MEDS ORDERED: ONDANSETRON 4 MG/2 ML VIAL ONE (12:09)
[2020-04-13] MEDS ORDERED: HYDROmorphone 0.5 MG/0.5 ML SYRINGE ONE (12:21)
--- NOTE | 2020-04-13 12:52 | Discharge Plan ---
Discharge Plan Problem Reviewed?: Yes Disposition: Home, Self Care Condition: Stable Diet: Regular Activity Restrictions: Additional Comments (no driving on the dilaudid) Shower Restrictions: Yes (see Vac instructions--do not shower with vac) Weight Bearing: Full Weight No Smoking: If you smoke, Please STOP! Call for help. Follow-up with: Helen Kumar MD [Primary Care Provider] - (Follow up with home health wound RN and then wound clinic as directed by Tomas)
--- NOTE | 2020-04-13 15:00 | ANESTHESIA POST OP EVALUATION ---
Anesthesia Post Eval - Post Anesthesia Eval Vitals: Last Vital Signs Temp 37.0 C 04/13/20 12:14 Pulse 89 04/13/20 12:14 Resp 16 04/13/20 12:14 BP 118/64 04/13/20 12:14 Pulse Ox 100 04/13/20 12:14 CV Function Including HR & BP: positive: Stable Pain Control: positive: Satisfactory Nausea & Vomiting: positive: Negative Mental Status: positive: Baseline Respiratory Status: Airway Patent Hydration Status: Satisfactory Anesthesia Complications: positive: None
[2020-04-13 16:16] VITALS: BP 111/63
[2020-04-13] MEDS ORDERED: MIDAZOLAM 2 MG/2 ML VIAL IVP ONE (16:24)
[2020-04-13] MEDS ORDERED: ONDANSETRON 4 MG/2 ML VIAL IVP ONE (16:24)
[2020-04-13] MEDS ORDERED: DEXAMETHASONE 4 MG/ML VIAL IVP ONE (16:24)
[2020-04-13] MEDS ORDERED: PROPOFOL 200 MG/20 ML VIAL IVP ONE (16:24)
[2020-04-13] MEDS ORDERED: KETOROLAC 30 MG/ML VIAL IVP ONE (16:24)
[2020-04-13] MEDS ORDERED: fentaNYL 100 MCG/2 ML VIAL IVP ONE (16:24)
[2020-04-13] MEDS ORDERED: LIDOCAINE-MPF 2% 5 ML VIAL IM ONE (16:24)
[2020-04-13] MEDS ORDERED: ACETAMINOPHEN 1,000 MG/100 ML 100 ML IV ONE (16:24)
--- NOTE | 2020-04-15 10:21 | DISCHARGE SUMMARY ---
Physician: Sonam Donnelly MD DATE OF ADMISSION: 04/12/2020 DATE OF DISCHARGE: 04/13/2020 ADMISSION DIAGNOSES 1. Eleven days status post section. 2. Wound disruption. 3. Wound infection. 4. Anxiety. DISCHARGE DIAGNOSES 1. Eleven days status post section. 2. Wound disruption. 3. Wound infection. 4. Anxiety. OPERATIONS AND PROCEDURES: 04/13/[address] Marin. She had a wound debridement, washout, and a wound VAC placement. There was no fascial dehiscence, and the wound dimensions were 19 cm long x 3 cm high and 3 cm wide HOSPITAL COURSE: Patient was admitted for bedrest and antibiotic treatment prior to exploration and placement of a wound VAC. She had been on Levaquin alone at home. Both doxycycline and Flagyl were added to this regimen. She was afebrile throughout her hospitalization. Blood cultures were negative, lactate was negative, and wound culture has not yet grown out. She tolerated her new medications well. She went to the OR on the without incident, and she was sent home with her wound VAC. Postoperative care has been arranged with both General Surgery, as well as the Wound Care Clinic. [place] The patient has been doing otherwise well from a standpoint. Her baby is in the ICU and is doing well. She pumped throughout her hospitalization, and she does not need to discard her milk based on her medication use. DISCHARGE MEDICATIONS 1. Levaquin 750 mg daily for 12 more days. 2. Metronidazole 500 mg p.o. b.i.d. for 2 more days. 3. Doxycycline 100 mg p.o. b.i.d. for 10 more days. 4. Dilaudid 2 mg #20, no refills. She was advised to take a tablet about 1 hour prior to wound change appointments. DISCHARGE DISPOSITION: Home. CONDITION: Good. FOLLOWUP: Tomorrow at the Wound Care Clinic. TD: 04/13/2020 17:28 MTDD
== END 2020-04-13 16:25 | disposition home or self-care (01) | DRG 769 ==
LOC: ED 11:13 → MS2 12:44
PROVIDERS: ADMIT Obstetrics & Gynecology; ATTEND Obstetrics & Gynecology
PROC: 0JDC0ZZ Extraction of Pelvic Region Subcutaneous Tissue and Fascia, Open Approach (ICD-10-PCS; principal; 2020-04-12)
DX: O90.0 Disruption of cesarean delivery wound (principal); O86.00 Infection of obstetric surgical wound, unspecified; O99.345 Other mental disorders complicating the puerperium; F41.9 Anxiety disorder, unspecified
CPT/HCPCS: 36415; 74177; 80053; 83605; 85025; 87040; 87070; 87077; 87181; 87205; 99283; 99285; A9270; J0131; J1170; J7120; Q0162; Q9967

== ENCOUNTER 2020-04-26 17:58 | Emergency (ER) | payer OTHER ==
[2020-04-26 18:26] VITALS: BP 105/64
[2020-04-26] MEDS ORDERED: predniSONE 20 MG TABLET PO STA (18:44)
[2020-04-26] MEDS ORDERED: TERBINAFINE 250 MG TABLET PO STA (18:44)
--- NOTE | 2020-04-26 18:47 | ED Physician Documentation ---
History of Present Illness - Stated complaint Stated Complaint: RASH - Chief complaint Chief Complaint: Wound - History obtained from History obtained from: Patient - History of Present Illness Timing: How many weeks ago (1) Pain level max: 3 Pain level now: 3 - Additonal information Additional information: 19-year-old female presents to the emergency department complaining of itching and a rash to the bilateral inguinal areas. Took fluconazole without relief. Nothing makes it better. Worse with movement. She states that she started with a vaginal yeast infection. She is not currently using any topical medications. She is breast-feeding. 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 : None HEENT: None Psych: None Musculoskeletal: None Derm: None - Past Surgical History Past Surgical History: No /DRYING FRAME OPERATOR: section HEENT: Tonsil/Adenoidectomy - Present Medications Home Medications: Ambulatory Orders Medication Instructions Recorded Confirmed Metoclopramide [Reglan] 10 mg PO Q4HR PRN 12/13/19 04/21/20 Promethazine Supp [Phenergan Supp] 25 mg [place] DAILY PM PRN 12/13/19 04/21/20 Promethazine [Phenergan] 12.5 mg PO Q8HR PRN 12/13/19 04/21/20 Sertraline [Zoloft] 25 mg PO DAILY 12/13/19 04/21/20 Acetaminophen [Tylenol Extra 500 - 1,000 mg PO Q8H PRN #90 04/03/20 04/21/20 Strength] tablet Docusate Sodium 100 - 200 mg PO BID PRN #60 capsule 04/03/20 04/21/20 Ibuprofen [Motrin] 600 mg PO Q6H PRN #90 tab 04/03/20 04/21/20 oxyCODONE [Roxicodone] 5 mg PO Q4H PRN #24 tablet 04/03/20 04/21/20 Ascorbic Acid [Vitamin C] 250 mg PO BID #90 tablet 04/04/20 04/21/20 Ferrous Sulfate 325 mg PO BID #90 tablet 04/04/20 04/21/20 Fluconazole [Diflucan] 150 mg PO DAILY #3 tablet 04/21/20 Nystatin Cream [Mycostatin Cream] 1 applic TOP BID #1 tube 04/26/20 - Allergies Allergies/Adverse Reactions: Allergies Allergy/AdvReac Type Severity Reaction Status Date / Time adhesive tape Allergy Itching Verified 04/26/20 18:22 Penicillins AdvReac Itching Verified 04/26/20 18:22 - Social History Does the pt smoke?: No Smoking Status: Never smoker Does the pt drink ETOH?: No Does the pt have substance abuse?: No - Immunizations Immunizations are current?: Yes - POLST Patient has POLST: No PD ED PE NORMAL - Vitals Vital signs reviewed: Yes - General General: Alert and oriented X 3, No acute distress - HEENT HEENT: Moist mucous membranes - Neck Neck: Supple, no meningeal sign - Female Female : [employer] present (Kerry Roman RN), Other (External exam reveals loss of hair and erythematous skin to the bilateral inguinal areas. No drainage. No abscess.) - Derm Derm: Warm and dry - Neuro Neuro: Alert and oriented X 3 Results - Vitals Vitals: Vital Signs - 24 hr 04/26/20 04/26/20 04/26/20 18:22 18:38 18:57 Temperature 36.8 C 36.8 C 36.8 C Heart Rate 72 72 72 Respiratory 16 16 16 Rate Blood Pressure 105/64 105/64 105/64 O2 Saturation 99 99 99 Oxygen O2 Source Room air PD MEDICAL DECISION MAKING - ED course Complexity details: considered differential, d/w patient ED course: Patient with what appears to be tinea cruris. She is breast-feeding, so this does limit our treatment selections. She is unable to take terbinafine. We will trial her on nystatin to see if this improves her symptoms. She may need to stop breast-feeding while she is treated for the tinea. She will discuss this with her doctor. Patient counseled regarding signs and symptoms for which I believe and urgent re-evaluation would be necessary. Patient with good understanding of and agreement to plan and is comfortable going home at this time This document was made in part using voice recognition software. While efforts are made to proofread this document, sound alike and grammatical errors may occur. Departure - Departure Disposition: 01 Home, Self Care Clinical Impression: Tinea cruris Condition: Good Instructions: ED Tinea Cruris General Follow-Up: Helen Kumar MD [Primary Care Provider] - Within 3 Days Prescriptions: Nystatin Cream [Mycostatin Cream] 1 applic TOP BID #1 tube Comments: Use the medications as prescribed. Return if you worsen. Follow-up with wound care for further care. Discharge Date/Time: 04/26/20 18:57
== END 2020-04-26 18:57 | disposition home or self-care (01) ==
LOC: ED 17:58
DX: B35.6 Tinea cruris (principal)
CPT/HCPCS: 99282; 99284; A9270; J7512

== ENCOUNTER 2020-09-13 01:55 | Emergency (ER) | payer OTHER ==
[2020-09-13 02:16] VITALS: BP 128/80
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
[2020-09-13] MEDS ORDERED: ULIPRISTAL ACETATE 30 MG TABLET PO STA (05:40)
[2020-09-13 05:59] LABS: BILIRUBIN,URINE NEGATIVE (NEGATIVE); GLUCOSE, URINE (UA) NEGATIVE (NEGATIVE); KETONES,URINE (UA) NEGATIVE (NEGATIVE); LEUKOCYTE ESTERASE, URINE NEGATIVE (NEGATIVE); NITRITE,URINE NEGATIVE (NEGATIVE); OCCULT BLOOD,URINE NEGATIVE (NEGATIVE); PH,URINE 5.5 PH (5.0-7.5); PROTEIN,URINE NEGATIVE (NEGATIVE); UROBILINOGEN,URINE 0.2 (NORMAL) E.U./dL (NORMAL)
[2020-09-13 06:01] LABS: CLARITY,URINE CLEAR (CLEAR)
[2020-09-13 06:02] LABS: HCG UR QUAL NEGATIVE
[2020-09-13 21:09] LABS: CHLAMYDIA TRACHOMATIS DNA NEGATIVE (NEGATIVE); NEISSERIA GONORRHOEAE DNA NEGATIVE (NEGATIVE); TRICHOMONAS VAGINALIS DNA NEGATIVE (NEGATIVE)
== END 2020-09-13 05:30 | disposition home or self-care (01) ==
LOC: ED 01:55
DX: T74.21XA Adult sexual abuse, confirmed, initial encounter (principal)
CPT/HCPCS: 0133C; 81003; 81025; 87491; 87591; 87661; A9270; 81001; 87086

== ENCOUNTER 2021-04-21 18:12 | Outpatient (CLI) | payer OTHER | END 2021-04-21 23:59 | disposition home or self-care (01) | LOC: LAB.S 18:12 | PROVIDERS: ATTEND Physician Assistant Medical | DX: B34.9 Viral infection, unspecified (principal); Z20.822 Contact with and (suspected) exposure to COVID-19 ==

== ENCOUNTER 2021-05-16 15:01 | Emergency (ER) | payer OTHER ==
[2021-05-16 15:21] LABS: BILIRUBIN,URINE NEGATIVE (NEGATIVE); GLUCOSE, URINE (UA) NEGATIVE (NEGATIVE); KETONES,URINE (UA) NEGATIVE (NEGATIVE); LEUKOCYTE ESTERASE, URINE NEGATIVE (NEGATIVE); NITRITE,URINE NEGATIVE (NEGATIVE); OCCULT BLOOD,URINE TRACE-INTA (NEGATIVE); PH,URINE 7.5 PH (5.0-7.5); PROTEIN,URINE NEGATIVE (NEGATIVE); UROBILINOGEN,URINE 0.2 (NORMAL) E.U./dL (NORMAL)
--- NOTE | 2021-05-16 15:22 | ED Physician Documentation ---
History of Present Illness - Stated complaint Stated Complaint: FEMALE - Chief complaint Chief Complaint: UTI - Additonal information Additional information: 20-year-old female presents emergency department for evaluation of 2 days dysuri a urgency frequency. Sensation that she does not fully empty her bladder. She also endorses low back pain. No fevers or vomiting. Doubts LMP 2 weeks ago. She does not have a history of recurrent urinary tract infections is denying vaginal bleeding or discharge. She is in a sexually monogamous relationship. Review of Systems Constitutional: denies: Fever, Chills Ears: reports: Reviewed and negative Throat: reports: Reviewed and negative Cardiac: reports: Reviewed and negative Respiratory: reports: Reviewed and negative GI: reports: Abdominal Pain. denies: Nausea, Vomiting : reports: Dysuria, Frequency Musculoskeletal: reports: Back pain Neurologic: reports: Reviewed and negative PD PAST MEDICAL HISTORY - Past Medical History Cardiovascular: None Respiratory: None Neuro: None Endocrine/Autoimmune: None GI: None TANK ASSEMBLER: None : None HEENT: None Psych: None Musculoskeletal: None Derm: None - Past Surgical History Past Surgical History: No /TANK ASSEMBLER: section HEENT: Tonsil/Adenoidectomy - Present Medications Home Medications: Ambulatory Orders Medication Instructions Recorded Confirmed Metoclopramide [Reglan] 10 mg PO Q4HR PRN 12/13/19 05/13/20 Promethazine Supp [Phenergan Supp] 25 mg NH DAILY PM PRN 12/13/19 05/13/20 Promethazine [Phenergan] 12.5 mg PO Q8HR PRN 12/13/19 05/13/20 Sertraline [Zoloft] 25 mg PO DAILY 12/13/19 05/13/20 Acetaminophen [Tylenol Extra 500 - 1,000 mg PO Q8H PRN #90 04/03/20 05/13/20 Strength] tablet Docusate Sodium 100 - 200 mg PO BID PRN #60 capsule 04/03/20 05/13/20 Ibuprofen [Motrin] 600 mg PO Q6H PRN #90 tab 04/03/20 05/13/20 Ascorbic Acid [Vitamin C] 250 mg PO BID #90 tablet 04/04/20 05/13/20 Ferrous Sulfate 325 mg PO BID #90 tablet 04/04/20 05/13/20 - Allergies Allergies/Adverse Reactions: Allergies Allergy/AdvReac Type Severity Reaction Status Date / Time adhesive tape Allergy Itching Verified 09/13/20 02:16 Penicillins Allergy Anaphylaxis Verified 05/16/21 15:07 - Social History Does the pt smoke?: No Smoking Status: Never smoker Does the pt drink ETOH?: No Does the pt have substance abuse?: No - Immunizations Immunizations are current?: Yes - POLST Patient has POLST: No PD ED PE NORMAL - General General: Alert and oriented X 3, No acute distress - HEENT HEENT: PERRL - Neck Neck: Supple, no meningeal sign - Cardiac Cardiac: RRR, No murmur - Respiratory Respiratory: Clear bilaterally - Abdomen Abdomen: Normal bowel sounds, Soft. No: Non tender (Tenderness to the suprapubic region and RLQ. + rebound. equivocal mcburneys ) - Back Back: No CVA TTP, No spinal TTP - Derm Derm: Warm and dry - Extremities Extremities: No deformity, Normal ROM s pain, No edema - Neuro Neuro: Alert and oriented X 3 Eye Opening: Spontaneous Motor: Obeys Commands - Psych Psych: Normal mood, Normal affect Results - Vitals Vitals: Vital Signs - 24 hr 05/16/21 05/16/21 05/16/21 15:08 15:09 17:09 Temperature 36.8 C Heart Rate 84 86 88 Respiratory 16 18 19 Rate Blood Pressure 127/64 123/83 H 95/75 O2 Saturation 97 100 100 Oxygen O2 Source Room air - Labs Labs: Laboratory Tests 05/16/21 05/16/21 05/16/21 15:11 16:10 16:10 WBC 8.2 RBC 3.99 L Hgb 10.8 L Hct 35.2 L MCV 88.2 MCH 27.1 MCHC 30.7 L RDW 13.7 Plt Count 352 MPV 11.7 H Neut # (Auto) 4.8 Lymph # (Auto) 2.5 White # (Auto) 0.7 Eos # (Auto) 0.1 Baso # (Auto) 0.1 Absolute Nucleated RBC 0.00 Nucleated RBC % 0.0 Sodium 138 Potassium 4.0 Chloride 103 Carbon Dioxide 26 Anion Gap 9.0 BUN 11 Creatinine 0.7 Estimated GFR (MDRD) 128 Glucose 91 Calcium 9.6 Total Bilirubin 0.3 AST 21 ALT 18 Alkaline Phosphatase 84 Total Protein 8.2 Albumin 4.5 Globulin 3.7 Albumin/Globulin Ratio 1.2 Lipase 21 L Urine Color YELLOW Urine Clarity CLEAR Urine pH 7.5 Ur Specific Ramona 1.015 Urine Protein NEGATIVE Urine Glucose (UA) NEGATIVE Urine Ketones NEGATIVE Urine Occult Blood TRACE-INTA Urine Nitrite NEGATIVE Urine Bilirubin NEGATIVE Urine Urobilinogen 0.2 (NORMAL) Ur Leukocyte Esterase NEGATIVE Ur Microscopic Review NOT INDICATED Urine Culture Comments NOT INDICATED Urine HCG, Qual NEGATIVE - Rads (name of study) CT abd Radiology: Final report received (Normal appendix. Likely 2 cm right ovarian hemorrhagic corpus luteal cyst) PD MEDICAL DECISION MAKING - ED course Complexity details: reviewed results, re-evaluated patient, d/w patient ED course: 20-year-old female presents to the emergency department for evaluation of 2 days dysuria urgency and frequency. She also endorsed right lower quadrant abdominal pain. Initially suspecting possibility of a UTI simply urine studies were obtained but no findings of infection on reevaluation she remained quite tender in the right lower quadrant therefore screening labs were obtained as well as a CT of the abdomen pelvis which again showed no acute abnormality. A likely physiologic or corpus luteal ovarian cyst was noted. This finding was discussed with the patient. Recommended ibuprofen and Tylenol at home for discomfort. Continue follow[facility] with [facility]. Emergent worrisome return precautions were discussed. Departure - Departure Disposition: Home, Self Care Clinical Impression: Right ovarian cyst Condition: Stable Record reviewed to determine appropriate education?: Yes Instructions: ED Cyst Ovarian Comments: You are seen in the emergency department today for urinary urgency and frequency as well as pain in the lower abdomen. Your screening labs including your blood counts chemistry panel and urine showed no worrisome abnormalities. Given the location of your pain we did do a CT of the abdomen to ensure that there was no acute appendicitis. The CT does show that you have a right ovarian cyst. This is likely what we call a physiologic or corpus luteal cyst meaning that you may be getting ready to ovulate. In general we recommend taking Tylenol or ibuprofen [id number] for lower abdominal discomfort. Please follow-up with [facility]. If any point you develop suddenly severe or different abdominal pain, have fevers higher than 102 or uncontrolled nausea and vomiting then please return to the ER for second evaluation.
[2021-05-16 15:23] LABS: CLARITY,URINE CLEAR (CLEAR); HCG UR QUAL NEGATIVE
[2021-05-16 16:16] LABS: BASOPHILS # (AUTO) 0.1 10^3/uL (0.0-0.1); BASOPHILS % (AUTO) 0.6 %; EOSINOPHILS # (AUTO) 0.1 10^3/uL (0.0-0.7); EOSINOPHILS % (AUTO) 1.3 %; HCT - HEMATOCRIT 35.2 % (37.0-47.0); HGB - HEMOGLOBIN 10.8 g/dL (12.0-16.0); LYMPHOCYTES # (AUTO) 2.5 10^3/uL (1.5-3.5); LYMPHOCYTES % (AUTO) 30.5 %; MEAN CORPUSCULAR HEMOGLOBIN 27.1 pg (27.0-31.0); MEAN CORPUSCULAR HGB CONC 30.7 g/dL (32.0-36.0); MEAN CORPUSCULAR VOLUME 88.2 fL (81.0-99.0); MEAN PLATELET VOLUME 11.7 fL (7.9-10.8); MONOCYTES # (AUTO) 0.7 10^3/uL (0.0-1.0); NEUTROPHILS # (AUTO) 4.8 10^3/uL (1.5-6.6); NEUTROPHILS % (AUTO) 58.1 %; PLT - PLATELET COUNT 352 10^3/uL (130-450); RED BLOOD COUNT 3.99 10^6/uL (4.20-5.40); RED CELL DISTRIBUTION WIDTH 13.7 % (12.0-15.0); WHITE BLOOD COUNT 8.2 x10^3/uL (4.8-10.8)
[2021-05-16 16:32] LABS: ALBUMIN 4.5 g/dL (3.2-5.5); ALBUMIN/GLOBULIN RATIO 1.2 (1.0-2.2); BILIRUBIN,TOTAL 0.3 mg/dL (0.2-1.0); CALCIUM 9.6 mg/dL (8.5-10.3); CREATININE 0.7 mg/dL (0.4-1.0); TOTAL PROTEIN 8.2 g/dL (6.7-8.2)
[2021-05-16] MEDS ORDERED: IOVERSOL 320 100 ML VIAL IVP ONE ×2 (16:52→17:24)
[2021-05-16 17:22] VITALS: BP 95/75
--- NOTE | 2021-05-16 17:56 | CT Report ---
PROCEDURE: Abdomen/Pelvis W INDICATIONS: lower abd pain CONTRAST: IV CONTRAST: Optiray 320 ml: 100 PO CONTRAST: *NO PO CONTRAST TECHNIQUE: After the administration of nonionic iodinated contrast, 5 mm thick sections acquired from the diaphr agms to the symphysis. 5 mm thick coronal and sagittal reformats were acquired. For radiation dose reduction, the following was used: automated exposure control, adjustment of mA and/or kV according to patient size. COMPARISON: None. FINDINGS: Image quality: Excellent. ABDOMEN: Lung bases: Lung bases are clear. Heart size is normal. Solid organs: Liver and spleen are normal in size and enhancement. Gallbladder is unremarkable. Bi liary system is non dilated. Pancreas enhances normally. No adrenal nodules. Kidneys demonstrate n ormal size and enhancement, without hydronephrosis. Peritoneum and bowel: Bowel loops demonstrate normal wall thickness and caliber. No free fluid or a ir. Appendix is normal. Nodes and vessels: No retroperitoneal or mesenteric adenopathy by size criteria. Aorta and inferior vena cava are normal in size. Miscellaneous: No ventral hernias. PELVIS: Genitourinary: Bladder wall thickness is normal. Uterus is unremarkable. Within the right ovary is a 2.0 cm crenulated appearing peripherally enhancing cystic lesion most consistent with a hemorrhagic /corpus luteal cyst. Miscellaneous: No inguinal hernias or adenopathy. Bones: No suspicious bony lesions. No vertebral body compression fractures. IMPRESSION: Normal appendix. Likely 2.0 cm right ovarian hemorrhagic cyst/corpus luteal cyst. Reviewed by: Alfonso Espana DO on 05/16/2021 4:55 PM ROLY Approved by: Alfonso Espana DO on 05/16/2021 4:55 PM [email or web address] Station ID: [id number]
== END 2021-05-16 18:27 | disposition home or self-care (01) ==
LOC: ED 15:01
DX: N83.11 Corpus luteum cyst of right ovary (principal)
CPT/HCPCS: 36415; 74177; 80053; 81003; 81025; 83690; 85025; 99282; 99284; Q9967; 81001; 87086